=== PATIENT | female | born 1940 | race Caucasian/White ===

== ENCOUNTER 2018-04-19 21:03 | Observation (INO) ==
--- NOTE | 2018-04-19 21:20 | Emergency Department Note ---
Disposition Clinical Impression: Right sided sciatica UTI (urinary tract infection) Qualifiers: Urinary tract infection type: site unspecified Hematuria presence: without hematuria Qualified Code(s): N39.0 - Urinary tract infection, site not specified Disposition: Admitted As Inpatient Condition: Fair Time of Disposition: 00:41 General Adult HPI - General Chief complaint: ED Extremity Injury, Lower Stated complaint: Leg Pain/Cant Walk Time Seen by Provider: 04/19/18 21:16 Source: patient, family Limitations: no limitations Nursing Notes Reviewed: Yes Vital Signs Reviewed: Yes - History of Present Illness HPI Narrative: Patient presents to the ED the chief complaint of right-sided neck pain and leg pain. Patient has a history of bilateral sciatica and has had multiple back surgeries and has seen pain management previously. She denies any associated injury, but states that she has had significantly increasing right-sided back pain for 2 weeks. States the pain starts in her buttock and radiates all the way down her leg. It got to the point tonight where she is unable to walk even when using her walker. She denies any fever, chills, chest pain or shortness of breath. No abdominal pain, nausea or vomiting. Does state she had some dysuria. Denies any numbness or weakness, but is complaining of pain Pain Scale: 6 - Related Data Allergies Allergy/AdvReac Type Severity Reaction Status Date / Time Penicillins Allergy See Verified 04/19/18 21:51 Comments Review of Systems: As reviewed in the HPI. All other systems reviewed are negative or normal. Past Medical History - Past Medical History Attestation: Yes The following information was validated with the patient. Source: patient Medical history: Reports: CHF, diabetes, hypertension Psychiatric history: Reports: depression - Social History Smoking Status: Never smoker Alcohol use: Reports: occasionally Drug use: Reports: none Physical Exam CONSTITUTIONAL: [Appears uncomfortable but is in no acute distress] SKIN: [Warm, dry, and intact without rash] EYES: [extraocular movements are grossly intact, clear conjunctiva] HENT: [Normocephalic, atraumatic, moist mucus membranes] NECK: [no obvious swelling, normal range of motion] PULMONARY: [normal chest rise and fall, no respiratory distress or stridor CARDIOVASCULAR: [regular rate, distal extremities are warm and well perfused] GASTROINSTESTINAL: [nondistended, non-tender] GENITOURINARY: [deferred] NEUROLOGIC: [normal speech, moves all extremities, normal sensation and strength. Does have significant pain with hip flexion on the right. Mild decrease in plantar flexion and extensor hallucis, longus on the right compared to the left, but is secondary to pain] MUSCULOSKELETAL: [no gross deformities, atraumatic, right piriformis tenderness in right PSIS pain, no right flank pain] PSYCHIATRIC: [normal mood and affect] - General General appearance: alert Course Course Narrative: Patient presenting with right-sided back pain and sciatica. History of similar in the past, but is more important than usual. We will get labs and a CT and pain medication. CT did not show any acute abnormality. Patient feeling slightly better after medication, but still is unable to ambulate on her own, even with assistance and walker. She also has urinary tract infection. We will give her dose of Rocephin and admitted to the hospital service. Vital Signs Temperature 99.8 F H 04/19/18 21:10 Pulse Rate 83 04/19/18 21:10 Respiratory Rate 18 04/19/18 21:10 Blood Pressure 150/72 04/19/18 21:10 O2 Sat by Pulse Oximetry 94 04/19/18 21:10 Temperature 99.8 F H 04/19/18 21:10 Pulse Rate 76 04/19/18 23:14 Respiratory Rate 18 04/19/18 23:14 Blood Pressure 160/72 04/19/18 23:14 O2 Sat by Pulse Oximetry 93 04/19/18 23:14 Oxygen Delivery Oxygen Delivery Room Air Medical Decision Making - Lab Data Result diagrams: 04/19/18 21:33 04/19/18 21:33 Lab Results 04/19/18 04/19/18 04/19/18 Range/Units 21:33 21:33 21:49 WBC 10.2 (4.3-11.1) K/mcL RBC 4.78 (3.82-4.97) M/mcL Hgb 13.6 (11.5-15.4) g/dL Hct 42.2 (35.3-44.9) % MCV 88.3 (83.0-100.0) fL MCH 28.5 (28.0-33.3) pg MCHC 32.2 (31.6-35.5) g/dL RDW 14.8 H (11.5-14.5) % Plt Count 253 (140-400) K/mcL MPV 9.9 (9.4-12.4) fL Immature Gran % 0.6 (0-4) % Seg Neutrophils % 70.4 % Lymphocytes % 17.9 % Monocytes % 7.2 % Eosinophils % 3.6 % Basophils % 0.3 % Neutrophils # 7.2 (1.6-8.9) K/mcL Lymphocytes # 1.8 (0.6-4.6) K/mcL Monocytes # 0.7 (0.0-1.3) K/mcL Eosinophils # 0.4 (0.0-0.6) K/mcL Basophils # 0.0 (0.0-0.2) K/mcL Sodium 139 (136-145) mEq/L Potassium 3.0 L (3.5-5.1) mEq/L Chloride 101 (98-107) mEq/L Carbon Dioxide 29 (23-29) mEq/L BUN 17 (8-23) mg/dL Creatinine 0.71 (0.60-1.20) mg/dL Est GFR ( Amer) > 60 (> 60) Est GFR (Non-Af Amer) > 60 (> 60) BUN/Creatinine Ratio 24 (6-26) Glucose 148 H (70-105) mg/dL Calculated Osmolality 292 (280-300) Calcium 9.7 (8.6-10.3) mg/dL Urine Color Yellow (Yellow) Urine Clarity Clear (Clear) Urine pH 6.0 (5.0-8.0) pH Units Ur Specific [place] 1.011 (1.010-1.025) Urine Protein Negative (Neg-Trace) mg/dL Urine Glucose (UA) Normal (Normal) mg/dL Urine Ketones Negative (Negative) mg/dL Urine Blood Negative (Negative) Urine Nitrite Positive A (Negative) Urine Bilirubin Negative (Negative) Urine Urobilinogen Normal (Normal) mg/dL Ur Leukocyte Esterase Large H (Negative) Urine Microscopic RBC 0-3 (0-3) per hpf Urine Microscopic WBC 50-100 H (0-3) per hpf Ur Squamous Epith Cells Moderate H (None-Few) per lpf Urine Bacteria Many H (None-Few) per hpf Hyaline Casts None Seen (None-Few) per lpf Ur Culture Indicated? YES A (NO)
[2018-04-19] MEDS ORDERED: Orphenadrine 60 MG/2 ML VIAL IV ONE (21:33)
[2018-04-19] MEDS ORDERED: *HR* Morphine 2 MG/ML SYRINGE IM ONE (21:33)
[2018-04-19 21:59] LABS: Bilirubin,Urine Negative (Negative); Blood,Urine Negative (Negative); Clarity,Urine Clear (Clear); Color,Urine Yellow (Yellow); Glucose,Urine (UA) Normal (Normal); Ketones,Urine Negative (Negative); Leukocyte Esterase,Urine Large (Negative); Nitrite,Urine Positive (Negative); Protein,Urine Negative (Neg-Trace); Specific Gravity,Urine 1.011 (1.010-1.025); Urobilinogen,Urine Normal (Normal)
[2018-04-19 22:00] LABS: Bacteria,Urine Many per hpf (None-Few); Hyaline Casts,Urine None Seen per lpf (None-Few); RBC,Urine 0-3 per hpf (0-3); Squamous Epithelial Cell,Urine Moderate per lpf (None-Few); WBC,Urine 50-100 per hpf (0-3)
[2018-04-19 22:06] LABS: Basophils % 0.3 %; Eosinophils # 0.4 K/mcL (0.0-0.6); Eosinophils % 3.6 %; Hematocrit 42.2 % (35.3-44.9); Hemoglobin 13.6 g/dL (11.5-15.4); Immature Granulocytes % 0.6 % (0-4); Lymphocytes # 1.8 K/mcL (0.6-4.6); Lymphocytes % 17.9 %; Mean Corpuscular HGB Conc 32.2 g/dL (31.6-35.5); Mean Corpuscular Hemoglobin 28.5 pg (28.0-33.3); Mean Corpuscular Volume 88.3 fL (83.0-100.0); Mean Platelet Volume 9.9 fL (9.4-12.4); Monocytes # 0.7 K/mcL (0.0-1.3); Monocytes % 7.2 %; Neutrophils # 7.2 K/mcL (1.6-8.9); Platelet Count 253 K/mcL (140-400); Red Blood Count 4.78 M/mcL (3.82-4.97); Red Cell Distribution Width 14.8 % (11.5-14.5); Segmented Neutrophils % 70.4 %
[2018-04-19 22:25] LABS: BUN/Creatinine Ratio 24 (6-26); Blood Urea Nitrogen 17 mg/dL (8-23); Calcium 9.7 mg/dL (8.6-10.3); Carbon Dioxide 29 mEq/L (23-29); Chloride 101 mEq/L (98-107); Glucose 148 mg/dL (70-105); Osmolality,Calculated 292 (280-300); Sodium 139 mEq/L (136-145); eGFR For Non-African Americans > 60 (> 60)
--- NOTE | 2018-04-19 23:50 | Emergency Department Note ---
Disposition Clinical Impression: UTI (urinary tract infection), Right sided sciatica Disposition: Admitted As Inpatient Condition: Fair General Adult HPI - General Chief complaint: ED Extremity Injury, Lower Stated complaint: Leg Pain/Cant Walk Time Seen by Provider: 04/19/18 21:16 - History of Present Illness Pain Scale: 6 - Related Data Allergies Allergy/AdvReac Type Severity Reaction Status Date / Time Penicillins Allergy See Verified 04/19/18 21:51 Comments Past Medical History - Past Medical History Medical history: Reports: CHF, diabetes, hypertension Psychiatric history: Reports: depression - Social History Smoking Status: Never smoker Alcohol use: Reports: occasionally Drug use: Reports: none Physical Exam - General General appearance: alert Course Vital Signs Temperature 99.8 F H 04/19/18 21:10 Pulse Rate 83 04/19/18 21:10 Respiratory Rate 18 04/19/18 21:10 Blood Pressure 150/72 04/19/18 21:10 O2 Sat by Pulse Oximetry 94 04/19/18 21:10 Temperature 99.8 F H 04/19/18 21:10 Pulse Rate 76 04/19/18 23:14 Respiratory Rate 18 04/19/18 23:14 Blood Pressure 160/72 04/19/18 23:14 O2 Sat by Pulse Oximetry 93 04/19/18 23:14 Oxygen Delivery Oxygen Delivery Room Air Medical Decision Making - Lab Data Result diagrams: 04/19/18 21:33 04/19/18 21:33 Lab Results 04/19/18 04/19/18 04/19/18 Range/Units 21:33 21:33 21:49 WBC 10.2 (4.3-11.1) K/mcL RBC 4.78 (3.82-4.97) M/mcL Hgb 13.6 (11.5-15.4) g/dL Hct 42.2 (35.3-44.9) % MCV 88.3 (83.0-100.0) fL MCH 28.5 (28.0-33.3) pg MCHC 32.2 (31.6-35.5) g/dL RDW 14.8 H (11.5-14.5) % Plt Count 253 (140-400) K/mcL MPV 9.9 (9.4-12.4) fL Immature Gran % 0.6 (0-4) % Seg Neutrophils % 70.4 % Lymphocytes % 17.9 % Monocytes % 7.2 % Eosinophils % 3.6 % Basophils % 0.3 % Neutrophils # 7.2 (1.6-8.9) K/mcL Lymphocytes # 1.8 (0.6-4.6) K/mcL Monocytes # 0.7 (0.0-1.3) K/mcL Eosinophils # 0.4 (0.0-0.6) K/mcL Basophils # 0.0 (0.0-0.2) K/mcL Sodium 139 (136-145) mEq/L Potassium 3.0 L (3.5-5.1) mEq/L Chloride 101 (98-107) mEq/L Carbon Dioxide 29 (23-29) mEq/L BUN 17 (8-23) mg/dL Creatinine 0.71 (0.60-1.20) mg/dL Est GFR ( Amer) > 60 (> 60) Est GFR (Non-Af Amer) > 60 (> 60) BUN/Creatinine Ratio 24 (6-26) Glucose 148 H (70-105) mg/dL Calculated Osmolality 292 (280-300) Calcium 9.7 (8.6-10.3) mg/dL Urine Color Yellow (Yellow) Urine Clarity Clear (Clear) Urine pH 6.0 (5.0-8.0) pH Units Ur Specific [place] 1.011 (1.010-1.025) Urine Protein Negative (Neg-Trace) mg/dL Urine Glucose (UA) Normal (Normal) mg/dL Urine Ketones Negative (Negative) mg/dL Urine Blood Negative (Negative) Urine Nitrite Positive A (Negative) Urine Bilirubin Negative (Negative) Urine Urobilinogen Normal (Normal) mg/dL Ur Leukocyte Esterase Large H (Negative) Urine Microscopic RBC 0-3 (0-3) per hpf Urine Microscopic WBC 50-100 H (0-3) per hpf Ur Squamous Epith Cells Moderate H (None-Few) per lpf Urine Bacteria Many H (None-Few) per hpf Hyaline Casts None Seen (None-Few) per lpf Ur Culture Indicated? YES A (NO) Attestation Statement - Attestation Attestation: I examined this patient and my medical decision-making was reviewed with the Resident Physician. I agree with the documented findings, disposition and treatment plan as described except to the extent set forth below. Patient presents to the ED as she complaint of right leg pain. Patient has pain rating on the back of her right leg. Patient has a history of low back problems including effusion. No numbness. She is having trouble ambulating because she is in pain. On examination she is laying in bed in no acute distress. Awake alert and oriented. Positive straight leg raise. Downgoing Babinski. Symmetric reflexes. Plan. Patient had CT L-spine that does not show any acute changes. She does have a UTI which we will treat. We will ambulate. Likely discharge if able to ambulate. Imaging performed. Patient is unable to ambulate. She has a UTI. Admitted. Lumbar Spine CT 04/19/18 21:34 IMPRESSION: 1. Diffuse osteopenia. Age-indeterminate but possibly chronic fracture of the inferior endplate of L1 vertebral body without significant loss of vertebral body height. 2. Postsurgical changes from prior decompression and fusion at L5-S1. Stable grade 1 anterolisthesis of L5. Stable multilevel spondylosis as above. Degenerative disc findings are worse at L5-S1. Most severe neural foraminal stenosis appears to be at L1-L2 on the left. D/ / Deny Espinoza MD / Deny Espinzoa MD Interpreting Provider: Deny Espinoza MD
[2018-04-20] MEDS ORDERED: cefTRIAXone 1,000 MG in Water for inj. (sterile) 20 ML 10 ML IVP ONE (00:16)
[2018-04-20] MEDS ORDERED: Naloxone 0.4 MG/ML INJ IVP PRN (04:38)
[2018-04-20] MEDS ORDERED: *HR* Dextrose 50 % in Water (Syg) 50 ML SYRINGE IVP PRN (04:41)
[2018-04-20] MEDS ORDERED: Dextrose Gel 15 GM/37.5 ML TUBE PO PRN ×2 (04:41)
[2018-04-20] MEDS ORDERED: D5% in Water 1,000 ML IVC PRN (04:41)
[2018-04-20 06:56] LABS: Hematocrit 38.5 % (35.3-44.9); Hemoglobin 12.5 g/dL (11.5-15.4); Mean Corpuscular HGB Conc 32.5 g/dL (31.6-35.5); Mean Corpuscular Hemoglobin 28.6 pg (28.0-33.3); Mean Corpuscular Volume 88.1 fL (83.0-100.0); Platelet Count 236 K/mcL (140-400); Red Blood Count 4.37 M/mcL (3.82-4.97); Red Cell Distribution Width 14.6 % (11.5-14.5)
[2018-04-20 07:15] LABS: BUN/Creatinine Ratio 24 (6-26); Blood Urea Nitrogen 13 mg/dL (8-23); Calcium 9.3 mg/dL (8.6-10.3); Carbon Dioxide 30 mEq/L (23-29); Chloride 102 mEq/L (98-107); Glucose 155 mg/dL (70-105); Magnesium 1.4 mg/dL (1.6-2.6); Osmolality,Calculated 295 (280-300); Potassium 3.3 mEq/L (3.5-5.1); Sodium 141 mEq/L (136-145); eGFR For Non-African Americans > 60 (> 60)
--- NOTE | 2018-04-20 07:18 | Internal Med History&Physical ---
Date of Encounter: 04/20/18 Time of Encounter: 03:30 Internal Medicine - H&P: HPI Chief complaint: Urinary tract infection Admitted From: Home Plans for Post Hospital Care: Home History of present illness: Ms. Palomino is a 77 year old female Patient presented for pain in her right leg that started 2 weeks ago. She states that she has not been able to walk on it. She was talking with her daughter who is in the medical field and she advised her to get it looked at in the ER. Patient denies falls, injuries, nothing that she can think of caused this. At base line, she walks with a walker. She describes the pain as 'hurting pain,' and it is felt mainly when she is walking. It is focused on the lateral aspect of her leg, and travels down her leg. She states that she has a history of siatica, but this pain has been different. She previously was treated at a pain management clinic, but has not been there since 2016. She has tried tylenol at home but it does not work. In the ER, UA was positive for nitrites and large leukocyte esterase and many bacteria. A lumbar CT showed diffuse osteopenia and post-surgical changes. She had a potassium of 3.0. She was admitted for further management of her UTI and leg pain. Upon my assessment patient is resting comfortably in bed. She denies chest pain , nausea, vomiting, abdominal pain and diarrhea. She also denies dysuria. She lives with her and multiple other family members. Past Med Surg Social Fam HX - Past Medical History Medical history: CHF, diabetes, hypertension Psychiatric history: depression - Past Surgical History Additional surgical history: Bilateral knee replacements, lower back fusion, cateracts - Social History Smoking Status: Never smoker Alcohol use: occasionally Drug use: none Internal Medicine - H&P: Meds Amlodipine Besylate 10 mg PO DAILY 04/20/18 [History] Furosemide [Lasix] 40 mg PO DAILY 04/20/18 [History] Potassium Chloride [Klor-Con Sprinkle] 10 meq PO DAILY 04/20/18 [History] Pravastatin Sodium 20 mg PO DAILY 04/20/18 [History] Zoloft 50 mg PO DAILY 04/20/18 [History] hydrALAZINE [HydrALAZINE] 25 mg PO Q8HR 04/20/18 [History] metFORMIN 1,000 mg PO BID 04/20/18 [History] 3 Allergy/AdvReac Type Severity Reaction Status Date / Time Penicillins Allergy See Verified 04/19/18 21:51 Comments All Systems PM: A 10-system review of systems was performed and is negative for pertinent findings except as documented above in the HPI. - Constitutional Vitals: Temp Pulse Resp BP Pulse Ox 98.2 F 70 16 146/72 90 04/20/18 03:52 04/20/18 03:52 04/20/18 03:52 04/20/18 03:52 04/20/18 03:52 General appearance: Present: cooperative, A&O X 3, pleasant, no acute distress, answers questions appropriately - Head Head exam: Present: normal inspection - Eye Eye exam: Present: EOMI, normal appearance - Respiratory Respiratory exam: Present: CTAB. Absent: chest wall tenderness, respiratory distress, wheezes - Cardiovascular Cardiovascular exam: Present: RRR. Absent: diastolic murmur, systolic murmur - GI/Abdominal GI/Abdominal exam: Present: normal bowel sounds, soft. Absent: guarding, tenderness - Extremities Exam Extremities exam: Present: warm, radial pulses palpable and symmetrical. Absent : calf tenderness, pedal edema, tenderness - Neurological Exam Neurological exam: Present: no focal deficits, strengths equal and symetr throughout. Absent: motor sensory deficit, facial droop, speech deficit - Skin Skin exam: Present: dry, normal color, warm Internal Med - H&P Results - Labs CBC & Chem 7: 04/20/18 06:31 04/19/18 21:33 Labs: Short CBC 04/20/18 Range/Units 06:31 WBC 8.9 (4.3-11.1) K/mcL Hgb 12.5 (11.5-15.4) g/dL Hct 38.5 (35.3-44.9) % Plt Count 236 (140-400) K/mcL - Assessment and plan (1) UTI (urinary tract infection) Current Visit: Yes Status: Acute Assessment and plan: UA positive for nitrites, large LE and many bacteria. Started on ceftriaxone in the ER. Unclear if this is contributing to her right sided leg and hip pain. Continue antibiotics Follow up culture results. Qualifiers: Urinary tract infection type: site unspecified Hematuria presence: without hematuria Qualified Code(s): N39.0 - Urinary tract infection, site not specified (2) Right sided sciatica Current Visit: Yes Status: Acute Assessment and plan: Patient has a history of sciatica, but recently not requiring pain medication. PT/OT evaluation Pain medication as needed Consider focused imaging on hip if injury is suspected. Lumbar spine showed osteopenia with chronic fracture of L1. (3) Diabetes Current Visit: Yes Status: Acute Assessment and plan: Monitor sugars ACHS, Low dose sliding scale with meals and at night. 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 Potassium supplementation given. Repeat labs in the morning Check magnesium. Replete if indicated. - Time Spent With Patient Total time spent is greater than 50% in coordination of care (as documented) at patient's floor/unit and/or counseling patient: Greater than 35 minutes
[2018-04-20] MEDS: Insulin LISPRO 300 UNITS/3 ML VIAL SQ SCH ×3 (09:31→16:21)
[2018-04-20] MEDS: amLODIPine 5 MG TABLET PO SCH (09:35)
[2018-04-20] MEDS: Furosemide 40 MG TABLET PO SCH (09:36)
[2018-04-20] MEDS: hydrALAZINE 25 MG TABLET PO SCH ×3 (09:36→23:22)
[2018-04-20] MEDS ORDERED: *HR* Metformin 500 MG TABLET PO ONE (09:56)
[2018-04-20] MEDS: traMADol 50 MG TABLET PO SCH ×3 (10:28→21:10)
[2018-04-20] MEDS: Gabapentin 300 MG CAPSULE PO SCH ×3 (10:29→21:10)
--- NOTE | 2018-04-20 18:06 | Discharge Summary ---
Date of Encounter: 04/21/18 Time of Encounter: 12:30 - Discharge Diagnosis (1) Right sided sciatica Priority: Primary Status: Acute (2) Type 2 diabetes mellitus Priority: Secondary Status: Chronic Qualifiers: Diabetes mellitus claims examiner insulin use: without claims examiner use Diabetes mellitus complication status: without complication Qualified Code(s): E11.9 - Type 2 diabetes mellitus without complications (3) HTN (hypertension) Priority: Secondary Status: Chronic Qualifiers: Hypertension type: essential hypertension Qualified Code(s): I10 - Essential (primary) hypertension (4) HLD (hyperlipidemia) Priority: Secondary Status: Chronic Qualifiers: Hyperlipidemia type: unspecified Qualified Code(s): E78.5 - Hyperlipidemia , unspecified (5) Hypokalemia Priority: Secondary Status: Acute (6) Hypomagnesemia Priority: Secondary Status: Acute Hospital course: Ms. Palomino is a 77 year old female. We admitted this patient with low back pain radiating to his right leg. She had low back surgery several years ago. CT of her lumbar spine was obtained in the emergency department. It showed diffuse osteopenia. It showed postsurgical changes from prior decompression and fusion at L5-S1. It showed degenerative for disc disease; worse at the L5-S1. It showed multiple neuronal foraminal stenosis, the worst appeared to be at L1-L2 on the left side. We suspected this patient to have sciatica. We put her on Neurontin and tramadol. I decided not to treat her for urinary tract infection, as she did not have any urinary symptoms. She did not have any fever or chills. She got significantly better by the time of discharge. CONDITION AT DISCHARGE: The patient is able to get up and ambulate on her own. She has only mild pain at sitting or in bed; gets worse (moderate) at standing and walking. She has normal urination. Skin: Free of rash and discoloration. Respiratory: Normal breath sounds with no crackles and wheezes bilaterally. CV: Heart is regular with no gallop or murmur. GI: Abdomen is flat and soft with no palpable mass or visceromegaly. Neuro exam: There is no focal deficits. Normal speech, swallowing and gait. SEE DISCHARGE ORDERS/MEDICATIONS.. She is to meet her PCP soon. She will get a referral to a pain block specialist. Discharge discussed with: patient, family, nurse - Time Spent with Patient Total time spent providing and/or coordinating discharge services: Greater than 30 minutes (40 minutes) - Discharge Medications Prescriptions: Gabapentin [Neurontin] 600 mg PO TID 30 Days #90 capsule Tramadol HCl [Tramadol HCl ER] 100 mg PO QAM 30 Days #30 tab.er.24h Home Medications: Amlodipine Besylate 10 mg PO DAILY 04/20/18 [History] Cholecalciferol (D-3) [Vitamin D] 1,000 unit PO DAILY 04/20/18 [History] Furosemide [Lasix] 40 mg PO DAILY 04/20/18 [History] Gabapentin [Neurontin] 600 mg PO TID 30 Days #90 capsule 04/20/18 [Rx] Metformin HCl [Glucophage] 1,000 mg PO BID 04/20/18 [History] Potassium Chloride [Klor-Con Sprinkle] 10 meq PO DAILY 04/20/18 [History] Pravastatin Sodium [Pravachol] 20 mg PO HS 04/20/18 [History] Sertraline [Zoloft] 50 mg PO DAILY 04/20/18 [History] Tramadol HCl [Tramadol HCl ER] 100 mg PO QAM 30 Days #30 tab.er.24h 04/20/18 [Rx ] hydrALAZINE [HydrALAZINE] 25 mg PO Q8HR 04/20/18 [History] Allergies/Adverse Reactions: 3 Allergy/AdvReac Type Severity Reaction Status Date / Time Penicillins Allergy See Verified 04/20/18 14:03 Comments Date of admission: 04/20/18 00:39 Primary care physician: Leela Chatman MD Consults: 04/20/18 04:42 Consult to Physical Therapy [CONS] Routine Comment: Evaluate, develop and implement POC Reason for Consult: Patient having difficulty walking for the past few weeks. States that she has had sciatica pain though it is worse the past few weeks. Does patient have active BEDREST order?: No Is patient medically & hemodynamically stable?: Yes OT [Consult to Occupational Therapy] [CONS] Routine Comment: Evaluate, develop and implement POC Reason for Consult: Patient has hip pain, difficulty walking. States that she has siatica pain, but worse the last few weeks. Does patient have active BEDREST order?: No Is patient medically & hemodynamically stable?: Yes Discharging clinician: Alejandro Brooks Anticipated date of discharge: 04/21/18 - Constitutional General appearance: Present: A&O X 3, no acute distress, answers questions appropriately Exam: xxx - Constitutional Vitals: Temp Pulse Resp BP Pulse Ox 97.8 F 76 16 125/71 92 04/20/18 16:24 04/20/18 16:24 04/20/18 16:24 04/20/18 16:24 04/20/18 16:24 General appearance: Present: cooperative, A&O X 3, pleasant, no acute distress, answers questions appropriately - Patient Status Disposition: Home, Self-Care Condition: Fair Functional capacity at discharge: uses cane/walker Overall status at discharge: patient is progressing back to baseline - Discharge Instructions Follow Up With: Leela Chatman MD [Primary Care Provider] - Additional Instructions: THE PATIENT IS TO SEE HER PCP - IN THE NEXT A FEW DAYS; SHE WILL GET A REFERRAL TO A [facility]. SHE DECIDED NOT TO GO TO [facility] TO GET PHYSICAL THERAPY. - Diet and Activity Activity: ambulate only with your walker (IF NEEDED..), increase activity as tolerated Diet: diabetic diet - VTE Reasons for not Prescribing Prophylaxis: Treatment not Indicated - Low risk for VTE Deep Vein Thrombosis/Pulmonary Embolism Present on Admission: No
[2018-04-20] MEDS ORDERED: Insulin LISPRO 300 UNITS/3 ML VIAL SQ SCH (21:00)
[2018-04-20] MEDS: cefTRIAXone 1,000 MG in Water for inj. (sterile) 20 ML 10 ML IVP SCH ×2 (21:10→23:00)
--- NOTE | 2018-04-20 23:11 | Event Note ---
Date of Encounter: 04/20/18 Time of Encounter: 23:08 Alerted by pts. nurse CANDICE Byrnes that patient's IV site had gone bad and the patient was refusing to have another IV placed due to being told she would be discharged today. Patient receiving IV Rocephin for UTI. Pt. was educated on the risks of not continuing IV abx by her nurse, but pt. still refused to have new IV access started. Discharge abx to be handled in a.m. by discharging Hospitalist.
[2018-04-21] MEDS: Furosemide 40 MG TABLET PO SCH (08:02)
[2018-04-21] MEDS: Gabapentin 300 MG CAPSULE PO SCH (08:02)
[2018-04-21] MEDS: amLODIPine 5 MG TABLET PO SCH (08:02)
[2018-04-21] MEDS: hydrALAZINE 25 MG TABLET PO SCH (08:03)
[2018-04-21] MEDS: traMADol 50 MG TABLET PO SCH (08:03)
[2018-04-21] MEDS: Insulin LISPRO 300 UNITS/3 ML VIAL SQ SCH ×2 (08:04→12:51)
[2018-04-21 12:26] VITALS: BP 114/66
== END 2018-04-21 14:37 | disposition home or self-care (01) ==
LOC: 3NENU 21:03 → EMEROOARM 21:03 → SUATTDRO 04-20 00:39 → 3NENU 04-20 01:12
PROVIDERS: ADMIT Internal Medicine; ATTEND Internal Medicine

== ENCOUNTER 2019-02-03 07:36 | Inpatient (IN) ==
[2019-02-03] MEDS ORDERED: Famotidine 20 MG/2 ML VIAL IVP ONE (07:55)
[2019-02-03] MEDS ORDERED: Celecoxib 200 MG CAPSULE PO ONE (07:56)
[2019-02-03] MEDS ORDERED: Pregabalin 75 MG CAPSULE PO ONE (07:56)
[2019-02-03] MEDS ORDERED: Acetaminophen IV 1,000 MG/100 ML INFUS..BTL IVPB ONE (07:56)
[2019-02-03] MEDS ORDERED: Ringers Solution, Lactated 1,000 ML IVC SCH ×2 (08:00→11:16)
[2019-02-03] MEDS ORDERED: Clindamycin 900 MG/50 ML 900 MG/50 ML IV.SOLN IVPB ONE (08:09)
[2019-02-03] MEDS ORDERED: *HR* FentaNYL (PF) 100 MCG/2 ML VIAL ONE (08:11)
[2019-02-03] MEDS ORDERED: Lidocaine -MPF 2% 2 ML VIAL ONE (08:11)
[2019-02-03] MEDS ORDERED: Ondansetron 4 MG/2 ML VIAL ONE (08:11)
[2019-02-03] MEDS ORDERED: *HR* Propofol 200 MG/20 ML VIAL IVP ONE (08:11)
[2019-02-03] MEDS ORDERED: Dexamethasone 4 MG/ML VIAL ONE ×2 (08:11→08:33)
[2019-02-03] MEDS ORDERED: *HR* Succinylcholine 200 MG/10 ML VIAL IVP ONE (08:11)
--- NOTE | 2019-02-03 08:16 | History & Physical Report ---
Date of Encounter: 02/03/19 Time of Encounter: 08:15 24 Hour HP Update - Instructions Instructions: If the History and Physical is less than 30 days old and was completed prior to A.M. admission and or procedure and has NOT been updated on calendar day of procedure please complete this update prior to performing procedure. - Update Patient reports changes in Medical Condition: No Changes in examination, assessment, or condition: No Changes in Medication: No Preop tests/diagnostics Reviewed: Yes Surgery Remains Indicated: Yes Consent for Planned Operative Procedure(s) Verified: Yes - Pre-Operative Checklist Preoperative Checklist Indicated: No Prophylactic Antibiotic Ordered: Yes Is VTE Prophylaxis Indicated?: Yes
[2019-02-03] MEDS ORDERED: ROPIVACAINE HCL/PF 0.5% 30 ML VIAL ONE (08:26)
[2019-02-03] MEDS ORDERED: ROPIVACAINE/PF/NS SYRINGE INTRAART ONE (08:26)
[2019-02-03] MEDS ORDERED: Ethanol\\Acetic Acid\\Na Ace\\Ben 1,000 ML IRRIG.SOLN IR ONE (08:42)
--- NOTE | 2019-02-03 08:52 | Anesthesia Evaluation PreOp ---
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 Other Medical History: Diabetes Type II, GERD, Other ([place]) Anesthesia History: No Prior Anesthetic Complications : No Alcohol Use: occasionally Drug use: none Medications and Allergies Metformin HCl [Glucophage] 1,000 mg PO BID 04/20/18 [History] Pravastatin Sodium [Pravachol] 20 mg PO HS 04/20/18 [History] Sertraline [Zoloft] 50 mg PO DAILY 04/20/18 [History] Amlodipine Besylate 10 mg PO QAM 02/03/19 [History] Aspirin 325 mg PO DAILY 02/03/19 [History] Cholecalciferol (Vitamin D3) [Dialyvite Vitamin D] 5,000 units PO DAILY 02/03/19 [History] Magnesium 250 mg PO QPM 02/03/19 [History] Potassium Chloride [Klor-Con 10] 10 meq PO QPM 02/03/19 [History] Spironolactone 25 mg PO QAM 02/03/19 [History] Tizanidine HCl 4 mg PO TID PRN 02/03/19 [History] Allergy/AdvReac Type Severity Reaction Status Date / Time Penicillins Allergy See Verified 02/03/19 08:08 Comments - Meds/Allergy Pre-op Review Medications Reviewed: Yes Allergies Reviewed: Yes Beta Blockers on Current Med List: No Anesthesia Results - Labs Laboratory Tests 01/22/19 01/22/19 01/22/19 12:20 12:20 12:20 Hgb 13.0 Hct 41.4 Plt Count 315 PT 10.9 INR 1.0 APTT 34.4 Sodium 138 Potassium 4.8 BUN 20 Creatinine 0.82 - Imaging EKG: report reviewed (SR First Degree AV Block) Anesthesia Exam O2 Sat Height 1.6 m Weight 112.037 kg O2 Sat by Pulse Oximetry 96 Vital Signs Temp Pulse Resp BP Pulse Ox 98.0 F 88 18 136/51 96 02/03/19 08:03 02/03/19 08:03 02/03/19 08:03 02/03/19 08:03 02/03/19 08:03 Height: 5'3 Weight: 247 lbs NPO (# of Hours): MN Pain Scale: 0 - HEENT Pupil (Motor): Pupils equal, EOMI Mallampati: III Teeth: Normal Oral Opening: Less than or equal to 3 - AIRCRAFT ENGINE DISMANTLER LOC: Oriented AIRCRAFT ENGINE DISMANTLER Motor: Normal RUE, Normal LUE, Normal RLE, Normal LLE, Normal Face AIRCRAFT ENGINE DISMANTLER Sensory: Normal: RUE, LUE, RLE, LLE, Face - Cardiac Rhythm: Regular Murmur: None JVD: No Carotid Bruit: No - Pulmonary Breath Sounds: bilateral Clear Respiratory Effort: Symmetrical Anesthesia Assess/Plan ASA Score: 3 (HTN MO IVON) Level of consciousness: Cooperative, Oriented Anesthetic Plan: General, Regional Nerve Block Regional Nerve Block Plan: Supracervical Plexus Autologous Blood: No Monitoring Plan: Standard Monitors Recovery Plan: PACU (Discussed GA and RA, agrees to proceed)
[2019-02-03] MEDS ORDERED: Tranexamic Acid 1,000 MG/10 ML VIAL ONE (09:36)
--- NOTE | 2019-02-03 10:16 | Orthopedic Operative Note ---
Date of procedure: 02/03/19 Pre-op diagnosis: Right shoulder cuff tear arthropathy Post-op diagnosis: same Procedure: Procedure: Total Shoulder Replacment Reverse, right Estimated blood loss: 50 cc Hardware: Metal and polyethylene replacement: Arthrex 24, +2 , 25 mm screw glenoid baseplate, 4 locking 5.5 screw, 39+4 glenosphere, 13 apex humeral stem, poly insert 6 Exam Under anesthesia: Full motion no instability Procedural Notes: Irreparable tear supraspinatus tendon, grade 4 arthritic changes humeral head glenoid socket. Operative procedure: The patient was brought to the operating room and placed on the operating room table. After general anesthesia was administered the operative shoulder was examined. Findings were noted. The patient was placed in the modified beachchair position. All pressure points were padded appropriately. And the head was stabilized in the neutral position. The operative extremity was prepped and draped in the sterile surgical fashion. The patient received IV antibiotics prior to skin incision. A standard deltopectoral approach was made to the operative shoulder. Incision was made to the skin and subcutaneous tissue,hemo stasis was obtained with Bovie cautery. Using careful blunt dissection the cephalic vein was identified and mobilized medially. The deltopectoral interval was developed and the clavipectoral fascia was incised. The subscap was released off the lesser tuberosity and tagged with #2 FiberWire suture subscap was irreparable.. The humerus was dislocated patient noted to have irreparable tear supraspinatus tendon, and the humeral cut was made along the anatomic neck. Patient noted to have grade 4 arthritic changes humeral head glenoid socket. Anterior and posterior Bankart retractors were placed to expose the glenoid. The glenoid guide was seated and the centering hole was made. It was reamed with the appropriate reamer. The 24, +2, 25 mm screw, baseplate was seated and secured with 4 locking 5.5 screw. The baseplate was irrigated and dried and the 39+4 Glenosphere was seated and s ecured with the Holland taper. The Holland taper was tested and found to be secure, glenosphere fixation was secondarily secured with the central screw. The humerus was redislocated and prepared with the diaphyseal reamers, followed by a broaching process up to the appropriate size 13 in the patient's anatomic version. The metaphyseal reamer was then utilized. Trial reduction found the shoulder to be relocatable. Trial components were removed and 13 stem was impacted in place in the patient's anatomic version. Trial reduction found the shoulder to be relocatable and stable with the appropriate 6 Trial component was removed and the real implant was seated and secured the shoulder was reduced. The shoulder had excellent motion and excellent stability and no evidence of dislocation. The deep tissue was irrigated with pulse irrigation. The PA close the shoulder. The deltopectoral interval was closed with a running #1 PDS suture, subcutaneous tissue was irrigated and closed with 0 PDS suture, the skin was closed with Dermabond. The patient was placed in a sterile dressing, abduction brace and extubated. The patient was then transferred to the recovery room in stable condition. Anesthesia: WICHO Surgeon: Curtis Conner Was there an information technology assistant present: No Estimated blood loss (cc): 50 Condition: stable Disposition: PACU
[2019-02-03] MEDS ORDERED: *HR* OxyCODONE Immed Rel 5 MG TABLET PO PRN (10:34)
--- NOTE | 2019-02-03 11:02 | Anesthesia Evaluation Post Op ---
Date of Encounter: 02/03/19 Time of Encounter: 11:00 - Vital Signs Vital Signs: Vital Signs/O2 Sat/Glucose, Most Current Temp Pulse Resp BP Pulse Ox 02/03/19 10:49 87 20 98 02/03/19 10:39 89 22 128/67 100 02/03/19 10:29 98.2 F 83 20 166/81 97 02/03/19 09:39 98.0 F 80 18 177/95 95 02/03/19 09:23 80 177/95 95 02/03/19 09:05 85 160/85 96 02/03/19 08:03 98.0 F 88 18 136/51 96 - Lungs Lungs: Clear Ascult./Percussion - Airway Airway: Non-obstructed - Cardiovascular Regular Rate - Mental Status Mental Status: Alert & Oriented, Answers Appropriately - Pain Pain Scale: 0 - Nausea Vomiting Nausea Vomiting: Not Present - Hydration Hydration: Ice chips - Discharge PostOp Status: Transfer Patient to floor
[2019-02-03] MEDS ORDERED: Temazepam 15 MG CAPSULE PO PRN (11:16)
[2019-02-03] MEDS ORDERED: traMADol 50 MG TABLET PO PRN (11:16)
[2019-02-03] MEDS ORDERED: MOM Conc 10 ML UD.LIQ PO PRN (11:16)
[2019-02-03] MEDS ORDERED: Sennosides 8.6 MG TABLET PO PRN (11:16)
[2019-02-03] MEDS ORDERED: tiZANidine 4 MG TABLET PO PRN (11:16)
[2019-02-03] MEDS ORDERED: Aspirin 325 MG TABLET PO SCH (11:16)
[2019-02-03] MEDS ORDERED: Ondansetron 4 MG/2 ML VIAL IVP PRN (11:16)
[2019-02-03] MEDS: *HR* Metformin 500 MG TABLET PO SCH ×2 (12:24→16:53)
[2019-02-03] MEDS: Spironolactone 25 MG TABLET PO SCH (12:24)
[2019-02-03] MEDS: Cholecalciferol (D-3) 1,000 UNIT TABLET PO SCH (12:24)
[2019-02-03] MEDS: amLODIPine 5 MG TABLET PO SCH (12:24)
[2019-02-03] MEDS: *HR* OxyCODONE Immed Rel 5 MG TABLET PO PRN (15:35)
[2019-02-03] MEDS: *HR* Enoxaparin 30 MG/0.3 ML SYRINGE SQ SCH (16:52)
[2019-02-03] MEDS: Magnesium Oxide 400 MG TABLET PO SCH (16:53)
[2019-02-03] MEDS ORDERED: Dextrose Gel 15 GM/37.5 ML TUBE PO PRN ×2 (17:44)
[2019-02-03] MEDS ORDERED: *HR* Dextrose 50 % in Water (Syg) 50 ML SYRINGE IVP PRN (17:44)
[2019-02-03] MEDS ORDERED: D5% in Water 1,000 ML IVC PRN (17:44)
[2019-02-03] MEDS ORDERED: *HR* Enoxaparin 30 MG/0.3 ML SYRINGE SQ SCH (18:00)
[2019-02-03] MEDS: Insulin LISPRO 300 UNITS/3 ML VIAL SQ SCH ×2 (18:01→20:27)
--- NOTE | 2019-02-03 20:53 | Discharge Summary ---
<Marva Carlton - Last Filed: 02/03/19 20:50> Orders not resulted at time of discharge: Pending orders 02/03/19 07:57 US anesthesia pain block [US] Routine 02/03/19 10:07 Surgical Pathology [PTH] Routine 02/04/19 04:00 Basic Metabolic Panel DAILY Hemoglobin and Hematocrit [HEME] DAILY 02/05/19 04:00 Basic Metabolic Panel DAILY Hemoglobin and Hematocrit [HEME] DAILY Date of Encounter: 02/03/19 - Discharge Diagnosis (1) Status post reverse total arthroplasty of right shoulder Priority: Primary Status: Acute (2) Rotator cuff arthropathy of right shoulder Priority: Primary Status: Chronic (3) IVON on CPAP Priority: Secondary Status: Chronic (4) Obesity, morbid, BMI 40.0-49.9 Priority: Secondary Status: Chronic (5) HTN (hypertension) Priority: Secondary Status: Chronic Qualifiers: Hypertension type: unspecified Qualified Code(s): I10 - Essential (primary) hypertension (6) Type 2 diabetes mellitus Priority: Secondary Status: Chronic 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 Palomino is a 78 year old female status post right TSR reverse 02/03/19 with medical history of HTN, DMT2, IVON on CPAP, obesity. - Time Spent with Patient Total time spent providing and/or coordinating discharge services: - Discharge Medications Prescriptions: New Docusate Sodium [Colace] 100 mg PO BID 5 Days #10 capsule OxyCODONE Immed Rel [Roxicodone 5 MG] 5 mg PO Q6HR PRN 5 Days #20 tablet PRN Reason: Severe Pain Continued Metformin HCl [Glucophage] 1,000 mg PO BID Sertraline [Zoloft] 50 mg PO DAILY Pravastatin Sodium [Pravachol] 20 mg PO HS Amlodipine Besylate 10 mg PO QAM Cholecalciferol (Vitamin D3) [Dialyvite Vitamin D] 5,000 units PO DAILY Magnesium 250 mg PO QPM Spironolactone 25 mg PO QAM Tizanidine HCl 4 mg PO TID PRN PRN Reason: Muscle Spasm Aspirin 325 mg PO DAILY Discontinued Potassium Chloride [Klor-Con 10] 10 meq PO QPM Home Medications: Metformin HCl [Glucophage] 1,000 mg PO BID 04/20/18 [History] Pravastatin Sodium [Pravachol] 20 mg PO HS 04/20/18 [History] Sertraline [Zoloft] 50 mg PO DAILY 04/20/18 [History] Amlodipine Besylate 10 mg PO QAM 02/03/19 [History] Aspirin 325 mg PO DAILY 02/03/19 [History] Cholecalciferol (Vitamin D3) [Dialyvite Vitamin D] 5,000 units PO DAILY 02/03/19 [History] Docusate Sodium [Colace] 100 mg PO BID 5 Days #10 capsule 02/03/19 [Rx] Magnesium 250 mg PO QPM 02/03/19 [History] OxyCODONE Immed Rel [Roxicodone 5 MG] 5 mg PO Q6HR PRN 5 Days #20 tablet 02/03/19 [Rx] Spironolactone 25 mg PO QAM 02/03/19 [History] Tizanidine HCl 4 mg PO TID PRN 02/03/19 [History] Allergies/Adverse Reactions: Allergy/AdvReac Type Severity Reaction Status Date / Time Penicillins Allergy See Verified 02/03/19 08:08 Comments Date of admission: 02/03/19 11:16 Primary care physician: Leela Chatman MD Consults: 02/03/19 11:16 Consult to Occupational Therapy [CONS] Routine Comment: post shoulder surgery Reason for Consult: post shoulder surgery Does patient have active BEDREST order?: No Is patient medically & hemodynamically stable?: Yes Consult to Physical Therapy [CONS] Routine Comment: post shoulder surgery Reason for Consult: post shoulder surgery Does patient have active BEDREST order?: No Is patient medically & hemodynamically stable?: Yes Consult to Applications Trainer [CONS] Routine Reason for SW Consult: shoulder surgery RT Post Op Consult [CONS] Routine Labs on day of discharge: Labs from last 24 hours 02/03/19 02/03/19 11:49 08:01 POC Glucose 230 H 129 H - Impressions ITS Impressions Shoulder X-Ray 02/03/19 01:00 IMPRESSION: Anatomic alignment status post reverse type right shoulder arthroplasty. No evidence of hardware complication. D/ / Augie Austin MD / Augie Austin MD Interpreting Provider: Augie Austin MD - Patient Status Disposition: Transfer SNF Condition: Good - Discharge Instructions Follow Up With: Leela Chatman MD [Primary Care Provider] - Additional Instructions: Discharge Instructions: Total Shoulder Please call [facility] ([phone]), your Primary Care Physician, or report to the Emergency Room if you have any of the following symptoms: Nausea, vomiting, fever greater that 101.5, swelling, chest pain, shortness of breath, increased pain/redness/drainage/odor for your incision site, numbness/tingling, or any other concerning symptoms. ACTIVITY: Always keep your arm in the sling. Do not raise your arm away from your body. Do not use your arm to help with getting in or out of bed. No weight bearing permitted. Only perform those exercises given to you by your therapist. Incentive Spirometer 10 times an hour. MEDICATIONS: Upon discharge resume your home medications. Take all the medications as prescribed. Take a stool softener if taking narcotic pain medications. Stool softeners are only effective if you drink enough fluids. Drink 6-8 glass of water or fluids a day, unless this is not allowed for another health problem. Despite using stool softeners, if you haven't had a bowel movement in 3 days, please switch to a gentle laxative. Gentle laxatives are sold over the counter. You should have a bowel movement within 24 hours, if not call the office. You will be discharged from the hospital with a prescription for pain medication. You are encouraged to decrease the use of narcotic pain medication as tolerated. Should you require a refill, please call the office. [facility] prescribes narcotic pain medication for only 4-6 weeks after surgery. If you require pain medication beyond this time period, you may be referred to your Primary Care Physician or to the Pain Clinic for further evaluation. Plan ahead for refills on pain medication as many narcotics either need to be picked up at the office or mailed. It is best to call 48-72 hours in advance of needing a prescription refill so you don't run out of medication. To help control the post-operative pain, you may take NSAIDs (Aleve,Advil, Motrin, Ibuprofen, Naprosyn) or Tylenol as prescribed on the bottle in addition to the pain medication. WOUND CARE: Leave the dressing on for 7-10 days. You may change the dressing if it becomes saturated greater than 50%. Do not get the dressing wet at anytime. Wash your hands with antibacterial soap, rinse and dry prior to any wound care. If you have eliceo the visiting nurse or rehab facility can remove the stapes 10-14 days after surgery and place steri-strips across the wound. Leave the steri-strips in place until they fall off on their own. You may let water from the shower run on top of the steri-strips. If you do not have a visiting nurse or rehab facility, you will need to return to the office at 10-14 days for the eliceo to be removed. If you have itching or redness around the dressing call the office. FOLLOW-UP: Please follow up with your surgeon in the orthopedic clinic, as scheduled <Marva Robertson E - Last Filed: 02/07/19 16:58> Orders not resulted at time of discharge: Pending orders 02/03/19 07:57 US anesthesia pain block [US] Routine 02/07/19 04:00 Hemoglobin and Hematocrit [HEME] AM 0400 Hemoglobin and Hematocrit [HEME] AM 0400 Date of Encounter: 02/06/19 Time of Encounter: 16:15 - Discharge Diagnosis (1) Status post reverse total arthroplasty of right shoulder Priority: Primary Status: Acute (2) Rotator cuff arthropathy of right shoulder Priority: Primary Status: Chronic (3) IVON on CPAP Priority: Secondary Status: Chronic (4) Obesity, morbid, BMI 40.0-49.9 Priority: Secondary Status: Chronic (5) Diabetes Priority: Secondary Status: Chronic Qualifiers: Diabetes mellitus type: type 2 Diabetes mellitus fpc insulin use: with 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 Palomino is a 78 year old female POD#3 s/p right TSR reverse 02/03/19 Patient seen at bedside, without complaints. A&O x 3 Afebrile, vital signs stable. dressings c/d/i with no visible drainage or erythema. full motion of hand, NV intact distally. Labs reviewed. patient continues hyperkalemic though patient did receive her PO K+ supplement last night. Will have patient hold this and recheck labwork for resolution. Patient is not symptomatic of hyperkalemia at this time. Vitals have remained at baseline. Pain control: adequate Participating in therapy. She is very unsteady and weak and therefore has been recommended for SNF/ECF for rehabilitation All questions and concerns addressed. Educated on use of incentive spirometer. Encouraged ambulation and proper hydration. Patient educated on post-operative restrictions and post-operative care. Patient being discharged to [facility] today with outpatient orthopedic follow up arranged. - Time Spent with Patient Total time spent providing and/or coordinating discharge services: Date of admission: 02/03/19 11:16 Primary care physician: Leela Chatman MD Consults: 02/03/19 11:16 Consult to Occupational Therapy [CONS] Routine Comment: post shoulder surgery Reason for Consult: post shoulder surgery Does patient have active BEDREST order?: No Is patient medically & hemodynamically stable?: Yes Consult to Physical Therapy [CONS] Routine Comment: post shoulder surgery Reason for Consult: post shoulder surgery Does patient have active BEDREST order?: No Is patient medically & hemodynamically stable?: Yes Consult to Applications Trainer [CONS] Routine Reason for SW Consult: shoulder surgery RT Post Op Consult [CONS] Routine Discharging clinician: Curtis Conner Anticipated date of discharge: 02/06/19 - VTE Documentation of Mechanical Device: Venous foot pump, device Labs on day of discharge: Labs from last 24 hours 02/06/19 02/06/19 02/06/19 07:03 05:11 04:15 Hgb 11.6 Hct 36.1 Sodium 134 L Potassium 5.3 H Chloride 104 Carbon Dioxide 24 BUN 22 Creatinine 0.83 Est GFR ( Amer) > 60 Est GFR (Non-Af Amer) > 60 BUN/Creatinine Ratio 27 H Glucose 154 H POC Glucose 154 H Calculated Osmolality 284 Calcium 9.0 02/05/19 02/05/19 02/05/19 20:13 16:22 16:03 Hgb Hct Sodium 135 L Potassium 4.7 Chloride 105 Carbon Dioxide 23 BUN 24 H Creatinine 0.94 Est GFR ( Amer) > 60 Est GFR (Non-Af Amer) 58 L BUN/Creatinine Ratio 26 Glucose 142 H POC Glucose 172 H 134 H Calculated Osmolality 286 Calcium 8.7 02/05/19 02/05/19 02/04/19 11:17 07:37 21:06 Hgb Hct Sodium Potassium Chloride Carbon Dioxide BUN Creatinine Est GFR ( Amer) Est GFR (Non-Af Amer) BUN/Creatinine Ratio Glucose POC Glucose 138 H 149 H 132 H Calculated Osmolality Calcium 02/04/19 02/04/19 16:57 12:08 Hgb Hct Sodium Potassium Chloride Carbon Dioxide BUN Creatinine Est GFR ( Amer) Est GFR (Non-Af Amer) BUN/Creatinine Ratio Glucose POC Glucose 183 H 189 H Calculated Osmolality Calcium - Impressions ITS Impressions Shoulder X-Ray 02/03/19 01:00 IMPRESSION: Anatomic alignment status post reverse type right shoulder arthroplasty. No evidence of hardware complication. D/ / Augie Austin MD / Augie Austin MD Interpreting Provider: Augie Austin MD - Patient Status Functional capacity at discharge: uses cane/walker (hemiwalker) Overall status at discharge: patient is progressing back to baseline - Diet and Activity Activity: as per physical therapy Diet: advance to your usual diet
--- NOTE | 2019-02-03 20:56 | Physician Discharge Referral ---
Home Health/Hosp Referral Info Transfer to: Home Health Attending Provider: Dr. Conner - Diagnosis (1) Status post reverse total arthroplasty of right shoulder Priority: Primary Status: Acute (2) Rotator cuff arthropathy of right shoulder Priority: Primary Status: Chronic (3) IVON on CPAP Priority: Secondary Status: Chronic (4) Obesity, morbid, BMI 40.0-49.9 Priority: Secondary Status: Chronic (5) HTN (hypertension) Priority: Secondary Status: Chronic (6) Type 2 diabetes mellitus Priority: Secondary Status: Chronic - Respiratory Orders Smoking Cessation: Smoking cessation has been advised. For more information, call the [place] Tobacco Quit Line at 6-659-ZPHE-NOW. - Diet/Nutrition Diet/Nutrition Orders: Regular - Activity Activity Orders: Up ad thi, Ambulate, Chair - Services Needed Following services are medically necessary services: Nursing, Home Health Aide, Physical Therapy, Occupational Therapy Home Care Orders: Opsite dressing, leave intact until first post-operative visit. Zipline/[place] in place, plan to remove at post-operative day #14-16. If dressing becomes >50% saturated, contact office, remove dressing and place appropriate dressing in its place. Do not allow for dressing to get wet. Shoulder Precautions x 6 weeks. Apply cold therapy wrap 3-6x/day for 20 minutes at a time. Encourage ambulation throughout the day. Use Incentive spirometer 10x/hour. Elevate affected extremity above heart as tolerated. NWB to affected upper extremity x 6 weeks. Will remove brace at first post-operative appointment. OK to remove during PT/OT and Home exercises. - Transfer Medications Prescriptions: Docusate Sodium [Colace] 100 mg PO BID 5 Days #10 capsule OxyCODONE Immed Rel [Roxicodone 5 MG] 5 mg PO Q6HR PRN 5 Days #20 tablet PRN Reason: Severe Pain Home Medications: Metformin HCl [Glucophage] 1,000 mg PO BID 04/20/18 [History] Pravastatin Sodium [Pravachol] 20 mg PO HS 04/20/18 [History] Sertraline [Zoloft] 50 mg PO DAILY 04/20/18 [History] Amlodipine Besylate 10 mg PO QAM 02/03/19 [History] Aspirin 325 mg PO DAILY 02/03/19 [History] Cholecalciferol (Vitamin D3) [Dialyvite Vitamin D] 5,000 units PO DAILY 02/03/19 [History] Docusate Sodium [Colace] 100 mg PO BID 5 Days #10 capsule 02/03/19 [Rx] Magnesium 250 mg PO QPM 02/03/19 [History] OxyCODONE Immed Rel [Roxicodone 5 MG] 5 mg PO Q6HR PRN 5 Days #20 tablet 02/03/19 [Rx] Potassium Chloride [Klor-Con 10] 10 meq PO QPM 02/03/19 [History] Spironolactone 25 mg PO QAM 02/03/19 [History] Tizanidine HCl 4 mg PO TID PRN 02/03/19 [History] Allergies/Adverse Reactions: Allergy/AdvReac Type Severity Reaction Status Date / Time Penicillins Allergy See Verified 02/03/19 08:08 Comments Certification: Further, I certify that my clinical findings support that this patient is homebound (i.e. absences from home require considerable and taxing effort and are for medical reasons or evangelical services or infrequently or short duration when for other reasons) because: Homebound Reason: Post-surgery restriction and or conditions limit ability to leave home Attestation: My signature below is to certify that this patient is under my care and that I, or nurse practitioner, or a physician furniture removalist's assistant working with me, has a [id number] encounter with this patient.
[2019-02-03] MEDS: Clindamycin 900 MG/50 ML 900 MG/50 ML IV.SOLN IVPB SCH (23:29)
[2019-02-04] MEDS: *HR* Enoxaparin 30 MG/0.3 ML SYRINGE SQ SCH ×2 (05:30→17:17)
--- NOTE | 2019-02-04 06:36 | Orthopedics Progress Note ---
Date of Encounter: 02/04/19 Time of Encounter: 06:36 Subjective Interval history: Patient was seen this morning doing well without complaints. Afebrile vital signs stable. Operative extremity: Neurovascularly intact Dressing clean dry and intact Calves nontender Assessment and plan: Continue with postoperative care Plan for discharge today Objective Vital signs: Vital Signs Temp Pulse Resp BP Pulse Ox 02/04/19 05:27 136/70 02/04/19 04:03 97.8 F 72 15 177/88 93 02/03/19 23:13 98.2 F 74 15 155/83 90 02/03/19 20:38 93 02/03/19 19:30 98.2 F 82 15 129/75 91 02/03/19 14:26 97.5 F L 85 15 140/80 94 02/03/19 13:25 97.9 F 85 16 128/82 95 02/03/19 12:28 98.0 F 89 16 130/70 94 02/03/19 11:54 98.1 F 82 15 130/77 98 02/03/19 11:18 97.5 F L 16 16 124/81 99 02/03/19 10:59 98.2 F 83 20 130/72 100 02/03/19 10:49 87 20 139/86 98 02/03/19 10:39 89 22 128/67 100 02/03/19 10:29 98.2 F 83 20 166/81 97 02/03/19 09:39 98.0 F 80 18 177/95 95 02/03/19 09:23 80 177/95 95 02/03/19 09:05 85 160/85 96 02/03/19 08:03 98.0 F 88 18 136/51 96 Intake and Output 02/03/19 02/03/19 02/04/19 15:59 23:59 07:59 Intake Total 720 / 960 240 / 960 50 / 50 Output Total 50 / 50 Balance 670 / 910 240 / 910 50 / 50 Intake: IV Fluids 50 / 50 Cleocin Premix 900 MG/50 ML 900 50 / 50 mg In 50 ml @ 50 mls/hr IVPB Q8HR FAITH Rx#:[id number] Oral 720 / 960 240 / 960 Output: Urine 0 / 0 Estimated Blood Loss 50 / 50 Other: Meal Dinner Percent of Meal Consumed 75% # Urine Diapers 1 Weight 112.037 kg 112.1 kg Blood Glucose* 230 219 Patient Weight 02/04/19 23:59 Weight 112.1 kg - Labs Labs: Abnormal lab results POC Glucose 230 mg/dL (70-99) H 02/03/19 11:49 Consult Discharge Plan - Plan Referrals: Leela Chatman MD [Primary Care Provider] - Prescriptions: Docusate Sodium [Colace] 100 mg PO BID 5 Days #10 capsule OxyCODONE Immed Rel [Roxicodone 5 MG] 5 mg PO Q6HR PRN 5 Days #20 tablet PRN Reason: Severe Pain
[2019-02-04 06:50] LABS: BUN/Creatinine Ratio 31 (6-26); Blood Urea Nitrogen 27 mg/dL (8-23); Calcium 9.1 mg/dL (8.6-10.3); Carbon Dioxide 21 mEq/L (23-29); Chloride 103 mEq/L (98-107); Glucose 172 mg/dL (70-105); Osmolality,Calculated 285 (280-300); Potassium 5.3 mEq/L (3.5-5.1); Sodium 133 mEq/L (136-145); eGFR For Non-African Americans > 60 (> 60)
[2019-02-04 06:56] LABS: Hematocrit 36.6 % (35.3-44.9); Hemoglobin 11.8 g/dL (11.5-15.4)
[2019-02-04] MEDS: *HR* OxyCODONE Immed Rel 5 MG TABLET PO PRN ×2 (07:51→13:28)
[2019-02-04] MEDS: amLODIPine 5 MG TABLET PO SCH (07:51)
[2019-02-04] MEDS: *HR* Metformin 500 MG TABLET PO SCH ×2 (07:52→17:18)
[2019-02-04] MEDS: Aspirin 325 MG TABLET PO SCH (07:52)
[2019-02-04] MEDS: Cholecalciferol (D-3) 1,000 UNIT TABLET PO SCH (07:52)
[2019-02-04] MEDS: Spironolactone 25 MG TABLET PO SCH (07:52)
[2019-02-04] MEDS: Clindamycin 900 MG/50 ML 900 MG/50 ML IV.SOLN IVPB SCH (07:52)
[2019-02-04] MEDS: Insulin LISPRO 300 UNITS/3 ML VIAL SQ SCH ×3 (07:53→17:18)
[2019-02-04] MEDS: Magnesium Oxide 400 MG TABLET PO SCH (17:18)
--- NOTE | 2019-02-04 17:30 | Event Note ---
Date of Encounter: 02/04/19 Time of Encounter: 11:50 PCR - POD#1 s/p right TSR reverse 02/03/19 Patient seen at bedside, without complaints. A&O x 3 Afebrile, vital signs stable. dressings c/d/i with no visible drainage or erythema. full motion of hand, NV intact distally. Labs reviewed. H/H - 11.8/36.6 stable, asymptomatic K+ 5.3 - asymptomatic, will monitor Pain control: adequate Participating in PT. She is very unsteady and weak. therapist recommended ECF placement for further rehab upon DC All questions and concerns addressed. Educated on use of incentive spirometer. Encouraged ambulation and proper hydration. Patient educated on post-operative restrictions and post-operative care. Assessment and plan: Continue with postoperative care Discharge plan: ECF, pending auth
--- NOTE | 2019-02-04 17:31 | Physician Discharge Referral ---
<Marva Carlton - Last Filed: 02/04/19 17:30> ExtendedCare Referral Info Transfer To: [facility] Provider in Charge: Dr. Conner - Diagnosis (1) Status post reverse total arthroplasty of right shoulder Priority: Primary Status: Acute (2) Rotator cuff arthropathy of right shoulder Priority: Primary Status: Chronic (3) IVON on CPAP Priority: Secondary Status: Chronic (4) Obesity, morbid, BMI 40.0-49.9 Priority: Secondary Status: Chronic (5) HTN (hypertension) Priority: Secondary Status: Chronic (6) Type 2 diabetes mellitus Priority: Secondary Status: Chronic Expected Duration of Placement: <30 days Prognosis: Good Aware of Diagnosis: Patient Aware of Prognosis: Patient - Transfer Medications Prescriptions: Docusate Sodium [Colace] 100 mg PO BID 5 Days #10 capsule OxyCODONE Immed Rel [Roxicodone 5 MG] 5 mg PO Q6HR PRN 5 Days #20 tablet PRN Reason: Severe Pain Home Medications: Metformin HCl [Glucophage] 1,000 mg PO BID 04/20/18 [History] Pravastatin Sodium [Pravachol] 20 mg PO HS 04/20/18 [History] Sertraline [Zoloft] 50 mg PO DAILY 04/20/18 [History] Amlodipine Besylate 10 mg PO QAM 02/03/19 [History] Aspirin 325 mg PO DAILY 02/03/19 [History] Cholecalciferol (Vitamin D3) [Dialyvite Vitamin D] 5,000 units PO DAILY 02/03/19 [History] Docusate Sodium [Colace] 100 mg PO BID 5 Days #10 capsule 02/03/19 [Rx] Magnesium 250 mg PO QPM 02/03/19 [History] OxyCODONE Immed Rel [Roxicodone 5 MG] 5 mg PO Q6HR PRN 5 Days #20 tablet 02/03/19 [Rx] Spironolactone 25 mg PO QAM 02/03/19 [History] Tizanidine HCl 4 mg PO TID PRN 02/03/19 [History] Allergies/Adverse Reactions: Allergy/AdvReac Type Severity Reaction Status Date / Time Penicillins Allergy See Verified 02/03/19 08:08 Comments - Respiratory Orders None Smoking Cessation: Smoking cessation has been advised. For more information, call the [place] Tobacco Quit Line at 1-002-XFGT-NOW. - Ancillary Orders May use pressure relief devices daily prn, May go on ANGEL w/family/respon democrat w/meds at nurse discretion PRN, May consult with Dentist, Stripping Shovel Operator, Sales Support Assistant PRN - Advance Directives Code Status: Full Code - Mobility Orders Chair, Ambulate - Rehabiliation Orders Rehab Potential: Good Rehab Orders: ROM Exercises, Evaluation for Physical Therapy, Evaluation for Occupational Therapy Other: SHOULDER continuity: Opsite dressing, leave intact until first post-operative visit. Zipline/[place] in place, plan to remove at post-operative day #14-16. If dressing becomes >50% saturated, contact office, remove dressing and place appropriate dressing in its place. Do not allow for dressing to get wet. Shoulder Precautions x 6 weeks. Apply cold therapy wrap 3-6x/day for 20 minutes at a time. Encourage ambulation throughout the day. Use Incentive spirometer 10x/hour. Elevate affected extremity above heart as tolerated. NWB to affected upper extremity x 6 weeks. Will remove brace at first post-operative appointment. OK to remove during PT/OT and Home exercises. - Treatments Skin tear care topically daily PRN per policy - Diet Orders Regular CERTIFICATION: I certify that the transfer of the above named patient to an Extended Care Facility is necessary for the continuing treatment of the diagnosis listed. The above information is true and accurate reflection of patient's current condition. Confidential - Redisclosure prohibited without a patient's written consent. <Marva Robertson - Last Filed: 02/06/19 12:48> - Diagnosis (1) Status post reverse total arthroplasty of right shoulder Priority: Primary Status: Acute (2) Rotator cuff arthropathy of right shoulder Priority: Primary Status: Chronic (3) IVON on CPAP Priority: Secondary Status: Chronic (4) Obesity, morbid, BMI 40.0-49.9 Priority: Secondary Status: Chronic (5) Diabetes Priority: Secondary Status: Chronic (6) HLD (hyperlipidemia) Priority: Secondary Status: Chronic (7) HTN (hypertension) Priority: Secondary Status: Chronic Prognosis: Good Aware of Diagnosis: Patient Aware of Prognosis: Patient - Respiratory Orders Smoking Cessation: Smoking cessation has been advised. For more information, call the [place] Tobacco Quit Line at 0-744-ZMUI-NOW. - Lab Orders Lab Orders: Other (include drug levels w/frequency) (BMP Q3 DAYS X 2 TO MONITOR POTASSIUM; RESUME PO POTASSIUM SUPPLEMENT WHEN POTASSIUM RETURNS TO NORMAL LIMITS) - Ancillary Orders May use pressure relief devices daily prn, May go on ANGEL w/family/respon democrat w/meds at nurse discretion PRN, May consult with Dentist, Stripping Shovel Operator, Sales Support Assistant PRN - Advance Directives Code Status: Full Code - Mobility Orders Chair, Ambulate - Rehabiliation Orders Rehab Potential: Good Rehab Orders: ROM Exercises, Evaluation for Physical Therapy, Evaluation for O ccupational Therapy - Treatments Skin tear care topically daily PRN per policy - Diet Orders Regular CERTIFICATION: I certify that the transfer of the above named patient to an Extended Care Facility is necessary for the continuing treatment of the diagnosis listed. The above information is true and accurate reflection of patient's current condition. Confidential - Redisclosure prohibited without a patient's written consent.
[2019-02-05 03:14] LABS: Hematocrit 36.2 % (35.3-44.9); Hemoglobin 11.5 g/dL (11.5-15.4)
[2019-02-05 04:54] LABS: Calcium 9.2 mg/dL (8.6-10.3)
[2019-02-05] MEDS: *HR* OxyCODONE/APAP 5/325 TABLET PO PRN ×2 (05:13→11:08)
[2019-02-05] MEDS: Insulin LISPRO 300 UNITS/3 ML VIAL SQ SCH ×5 (05:13→21:10)
[2019-02-05] MEDS: *HR* Enoxaparin 30 MG/0.3 ML SYRINGE SQ SCH ×2 (05:14→18:09)
--- NOTE | 2019-02-05 06:22 | Orthopedics Progress Note ---
Date of Encounter: 02/05/19 Time of Encounter: 06:21 Subjective Interval history: Patient was seen this morning doing well without complaints. Afebrile vital signs stable. Operative extremity: Neurovascularly intact Dressing clean dry and intact Calves nontender Assessment and plan: Continue with postoperative care Plan for discharge when placement approved Objective Vital signs: Vital Signs Temp Pulse Resp BP Pulse Ox 02/05/19 04:54 98.7 F 81 18 143/74 93 02/04/19 23:57 98.3 F 83 18 142/80 93 02/04/19 18:35 98.0 F 83 18 149/75 93 02/04/19 17:02 98.1 F 78 16 158/100 96 02/04/19 12:13 98.3 F 82 16 179/92 98 02/04/19 07:42 97.7 F 84 16 165/84 96 Intake and Output 02/04/19 02/04/19 02/05/19 15:59 23:59 07:59 Intake Total 480 / 1230 700 / 1230 0 / 0 Output Total 0 / 0 Balance 480 / 1230 700 / 1230 0 / 0 Intake: Oral 480 / 1180 700 / 1180 0 / 0 Output: Urine 0 / 0 Other: Meal Breakfast Percent of Meal Consumed 100% # Urine Diapers 1 4 Weight 113.4 kg Blood Glucose* 183 132 Patient Weight 02/05/19 23:59 Weight 113.4 kg - Labs CBC & BMP: 02/05/19 02:15 02/05/19 02:12 Labs: Abnormal lab results Sodium 133 mEq/L (136-145) L 02/04/19 06:06 Potassium 5.3 mEq/L (3.5-5.1) H 02/04/19 06:06 Carbon Dioxide 21 mEq/L (23-29) L 02/04/19 06:06 BUN 29 mg/dL (8-23) H 02/05/19 02:12 Est GFR (Non-Af Amer) 49 (> 60) L 02/05/19 02:12 27 (6-26) H 02/05/19 02:12 Glucose 146 mg/dL (70-105) H 02/05/19 02:12 POC Glucose 167 mg/dL (70-99) H 02/04/19 07:40 Consult Discharge Plan - Plan Referrals: Leela Chatman MD [Primary Care Provider] - Prescriptions: Docusate Sodium [Colace] 100 mg PO BID 5 Days #10 capsule OxyCODONE Immed Rel [Roxicodone 5 MG] 5 mg PO Q6HR PRN 5 Days #20 tablet PRN Reason: Severe Pain
[2019-02-05] MEDS: Cholecalciferol (D-3) 1,000 UNIT TABLET PO SCH (08:55)
[2019-02-05] MEDS: Aspirin 325 MG TABLET PO SCH (08:55)
[2019-02-05] MEDS: Spironolactone 25 MG TABLET PO SCH (08:55)
[2019-02-05] MEDS: amLODIPine 5 MG TABLET PO SCH (08:55)
[2019-02-05] MEDS: *HR* Metformin 500 MG TABLET PO SCH ×2 (08:55→18:10)
--- NOTE | 2019-02-05 12:54 | Event Note ---
Date of Encounter: 02/05/19 Time of Encounter: 11:20 PCR - POD#2 s/p right TSR reverse 02/03/19 Patient seen at bedside, without complaints. A&O x 3 Afebrile, vital signs stable. dressings c/d/i with no visible drainage or erythema. full motion of hand, NV intact distally. Labs reviewed. H/H - 11.5/36.2 stable, asymptomatic K+ improved to 5.0 BMP did increase to 29, and Cr increased from 0.87 to 1.08 overnight, also GFR decreased to 48. Will give fluid bolus now then recheck labs later this afternoon. Pain control: adequate Participating in PT. She is very unsteady and weak. therapist recommended ECF placement for further rehab upon DC All questions and concerns addressed. Educated on use of incentive spirometer. Encouraged ambulation and proper hydration. Patient educated on post-operative restrictions and post-operative care. Assessment and plan: Continue with postoperative care Discharge plan: ECF, still pending auth
[2019-02-05] MEDS ORDERED: 0.9 % Sodium Chloride 500 ML IVC ONE (13:04)
[2019-02-05 17:21] LABS: BUN/Creatinine Ratio 26 (6-26); Blood Urea Nitrogen 24 mg/dL (8-23); Calcium 8.7 mg/dL (8.6-10.3); Carbon Dioxide 23 mEq/L (23-29); Chloride 105 mEq/L (98-107); Glucose 142 mg/dL (70-105); Osmolality,Calculated 286 (280-300); Potassium 4.7 mEq/L (3.5-5.1); Sodium 135 mEq/L (136-145); eGFR For Non-African Americans 58 (> 60)
[2019-02-05] MEDS: Magnesium Oxide 400 MG TABLET PO SCH (18:10)
[2019-02-05] MEDS: *HR* OxyCODONE Immed Rel 5 MG TABLET PO PRN (21:11)
[2019-02-06 05:06] LABS: BUN/Creatinine Ratio 27 (6-26); Blood Urea Nitrogen 22 mg/dL (8-23); Carbon Dioxide 24 mEq/L (23-29); Chloride 104 mEq/L (98-107); Glucose 154 mg/dL (70-105); Osmolality,Calculated 284 (280-300); Potassium 5.3 mEq/L (3.5-5.1); Sodium 134 mEq/L (136-145); eGFR For Non-African Americans > 60 (> 60)
[2019-02-06] MEDS: *HR* Enoxaparin 30 MG/0.3 ML SYRINGE SQ SCH (05:21)
[2019-02-06 05:25] LABS: Hematocrit 36.1 % (35.3-44.9); Hemoglobin 11.6 g/dL (11.5-15.4)
--- NOTE | 2019-02-06 06:24 | Orthopedics Progress Note ---
Date of Encounter: 02/06/19 Time of Encounter: 06:24 Subjective Interval history: Patient was seen this morning doing well without complaints. Afebrile vital signs stable. Operative extremity: Neurovascularly intact Dressing clean dry and intact Calves nontender Assessment and plan: Continue with postoperative care Plan for discharge when placement approved Objective Vital signs: Vital Signs Temp Pulse Resp BP Pulse Ox 02/05/19 22:57 98.2 F 85 15 154/69 91 02/05/19 19:20 99.3 F 92 17 148/80 96 02/05/19 15:25 98.8 F 92 17 119/67 93 02/05/19 10:16 98.1 F 85 17 148/74 93 02/05/19 07:19 98.6 F 82 17 136/73 94 Intake and Output 02/05/19 02/05/19 02/06/19 15:59 23:59 07:59 Intake Total 790 / 790 Balance 790 / 790 Intake: IV Fluids 550 / 550 0.9 % Sodium Chloride 500 ML @ 500 / 500 999 mls/hr IVC .Q31M ONE Rx#: [id number] Cleocin Premix 900 MG/50 ML 900 50 / 50 mg In 50 ml @ 50 mls/hr IVPB Q8HR FAITH Rx#:[id number] Oral 240 / 240 Other: Meal Lunch Percent of Meal Consumed 70% # Urine Diapers 2 1 2 Blood Glucose* 138 172 - Labs CBC & BMP: 02/06/19 05:11 02/06/19 04:15 Labs: Abnormal lab results Sodium 134 mEq/L (136-145) L 02/06/19 04:15 Potassium 5.3 mEq/L (3.5-5.1) H 02/06/19 04:15 Carbon Dioxide 21 mEq/L (23-29) L 02/04/19 06:06 BUN 24 mg/dL (8-23) H 02/05/19 16:22 Est GFR (Non-Af Amer) 58 (> 60) L 02/05/19 16:22 27 (6-26) H 02/06/19 04:15 Glucose 154 mg/dL (70-105) H 02/06/19 04:15 POC Glucose 149 mg/dL (70-99) H 02/05/19 07:37 Consult Discharge Plan - Plan Referrals: Leela Chatman MD [Primary Care Provider] - Prescriptions: Docusate Sodium [Colace] 100 mg PO BID 5 Days #10 capsule OxyCODONE Immed Rel [Roxicodone 5 MG] 5 mg PO Q6HR PRN 5 Days #20 tablet PRN Reason: Severe Pain
[2019-02-06] MEDS: Aspirin 325 MG TABLET PO SCH (08:10)
[2019-02-06] MEDS: Insulin LISPRO 300 UNITS/3 ML VIAL SQ SCH ×3 (08:10→16:21)
[2019-02-06] MEDS: amLODIPine 5 MG TABLET PO SCH (08:11)
[2019-02-06] MEDS: Spironolactone 25 MG TABLET PO SCH (08:11)
[2019-02-06] MEDS: *HR* Metformin 500 MG TABLET PO SCH (08:11)
[2019-02-06] MEDS: Cholecalciferol (D-3) 1,000 UNIT TABLET PO SCH (08:11)
[2019-02-06 16:18] VITALS: BP 152/82
== END 2019-02-06 17:48 | DRG 483 ==
LOC: SAMDAY 07:36 → 3NENU 11:16
PROVIDERS: ADMIT Orthopaedic Surgery; ATTEND Orthopaedic Surgery

== ENCOUNTER 2020-02-24 11:13 | Inpatient (IN) ==
[2020-02-24] MEDS ORDERED: predniSONE 20 MG TABLET PO ONE (12:26)
[2020-02-24 16:12] LABS: Hematocrit 41.3 % (35.3-44.9); Hemoglobin 12.8 g/dL (11.5-15.4); Mean Corpuscular Hemoglobin 27.8 pg (28.0-33.3); Mean Corpuscular Volume 89.8 fL (83.0-100.0); Platelet Count 266 K/mcL (140-400); Red Cell Distribution Width 14.8 % (11.5-14.5); White Blood Count 9.3 K/mcL (4.3-11.1)
[2020-02-24 16:31] LABS: BUN/Creatinine Ratio 25 (6-26); Blood Urea Nitrogen 23 mg/dL (8-23); Calcium 9.4 mg/dL (8.6-10.3); Carbon Dioxide 26 mEq/L (23-29); Chloride 104 mEq/L (98-107); Glucose 187 mg/dL (70-105); Osmolality,Calculated 293 (280-300); Potassium 5.3 mEq/L (3.5-5.1); Sodium 137 mEq/L (136-145); eGFR For African Americans > 60 (> 60); eGFR For Non-African Americans 59 (> 60)
[2020-02-24] MEDS ORDERED: Naloxone 0.4 MG/ML INJ IVP PRN (17:35)
[2020-02-24] MEDS ORDERED: Ondansetron ODT 4 MG TAB.RAPDIS SL PRN (17:35)
[2020-02-24] MEDS ORDERED: Dextrose Gel 15 GM/37.5 ML TUBE PO PRN ×2 (19:02)
[2020-02-24] MEDS ORDERED: *HR* Dextrose 50 % in Water (Vial) 50 ML VIAL IVP PRN (19:02)
[2020-02-24] MEDS ORDERED: D5% in Water 1,000 ML IVC PRN (19:02)
[2020-02-24] MEDS ORDERED: Insulin LISPRO 300 UNITS/3 ML VIAL SQ SCH (21:00)
[2020-02-24] MEDS: Gabapentin 300 MG CAPSULE PO SCH (22:09)
[2020-02-25 03:42] LABS: Calcium 9.4 mg/dL (8.6-10.3); Hematocrit 37.7 % (35.3-44.9); Hemoglobin 11.7 g/dL (11.5-15.4); Mean Corpuscular Hemoglobin 28.1 pg (28.0-33.3); Mean Corpuscular Volume 90.4 fL (83.0-100.0); Mean Platelet Volume 10.2 fL (9.4-12.4); Platelet Count 296 K/mcL (140-400); Potassium 5.2 mEq/L (3.5-5.1); Red Blood Count 4.17 M/mcL (3.82-4.97); Red Cell Distribution Width 14.6 % (11.5-14.5); White Blood Count 9.1 K/mcL (4.3-11.1)
[2020-02-25 03:57] LABS: Prothrombin Time 11.5 Seconds (9.4-12.1)
[2020-02-25 04:00] LABS: Activated Partial Thrombo Time 32.5 Seconds (26.0-36.0)
[2020-02-25] MEDS: Gabapentin 300 MG CAPSULE PO SCH ×3 (08:39→20:18)
[2020-02-25] MEDS: Insulin LISPRO 300 UNITS/3 ML VIAL SQ SCH ×3 (08:40→20:29)
[2020-02-25] MEDS ORDERED: amLODIPine 5 MG TABLET PO SCH (09:00)
[2020-02-25] MEDS ORDERED: Spironolactone 25 MG TABLET PO SCH (09:00)
[2020-02-25] MEDS ORDERED: Aspirin Enteric Coated 81 MG Tablet PO SCH (09:00)
[2020-02-25] MEDS ORDERED: Cholecalciferol (D-3) 1,000 UNIT (25MCG) TABLET PO SCH (09:00)
[2020-02-25] MEDS ORDERED: Furosemide 20 MG TABLET PO SCH (09:00)
[2020-02-25] MEDS ORDERED: Insulin LISPRO 300 UNITS/3 ML VIAL SQ SCH (14:30)
[2020-02-25] MEDS ORDERED: Ethanol\\Acetic Acid\\Na Ace\\Ben 1,000 ML IRRIG.SOLN IR ONE (16:47)
[2020-02-25] MEDS ORDERED: *HR* Propofol 200 MG/20 ML VIAL IVP ONE (17:00)
[2020-02-25] MEDS ORDERED: Lidocaine -MPF 2% 2 ML VIAL ONE (17:00)
[2020-02-25] MEDS ORDERED: *HR* FentaNYL (PF) 100 MCG/2 ML VIAL ONE ×2 (17:00→18:27)
[2020-02-25] MEDS ORDERED: Clindamycin 900 MG/50 ML 900 MG/50 ML IV.SOLN IVPB ONE ×2 (17:09→17:13)
[2020-02-25] MEDS ORDERED: *HR* Rocuronium Bromide 50 MG/5 ML VIAL ONE (17:16)
[2020-02-25] MEDS ORDERED: Lidocaine HCL 4 ML Topical Solution (Laryng-O-Jet Kit Sterile Pak) TP ONE (17:17)
[2020-02-25] MEDS ORDERED: Tranexamic Acid 1,000 MG/10 ML VIAL ONE (17:55)
[2020-02-25] MEDS ORDERED: Magnesium Oxide 400 MG TABLET PO SCH (18:00)
[2020-02-25] MEDS ORDERED: Vancomycin 1,000 MG VIAL ONE (18:07)
[2020-02-25] MEDS ORDERED: Ondansetron 4 MG/2 ML VIAL ONE (18:42)
[2020-02-25] MEDS ORDERED: Ondansetron 4 MG/2 ML VIAL IVP ONE (18:44)
[2020-02-25 19:33] LABS: Hematocrit 40.5 % (35.3-44.9); Hemoglobin 12.5 g/dL (11.5-15.4)
[2020-02-25] MEDS ORDERED: Ringers Solution, Lactated 1,000 ML IVC SCH (19:33)
[2020-02-25] MEDS ORDERED: Sennosides 8.6 MG TABLET PO PRN (19:33)
[2020-02-25] MEDS ORDERED: Dextrose Gel 15 GM/37.5 ML TUBE PO PRN ×4 (19:33)
[2020-02-25] MEDS ORDERED: Ondansetron 4 MG/2 ML VIAL IVP PRN (19:33)
[2020-02-25] MEDS ORDERED: Naloxone 0.4 MG/ML INJ IVP PRN ×2 (19:33)
[2020-02-25] MEDS ORDERED: MOM Conc 10 ML UD.LIQ PO PRN (19:33)
[2020-02-25] MEDS ORDERED: *HR* Promethazine 25 MG/ML VIAL IVP PRN (19:33)
[2020-02-25] MEDS ORDERED: Ondansetron ODT 4 MG TAB.RAPDIS SL PRN (19:33)
[2020-02-25] MEDS ORDERED: *HR* Dextrose 50 % in Water (Vial) 50 ML VIAL IVP PRN (19:33)
[2020-02-25] MEDS ORDERED: D5% in Water 1,000 ML IVC PRN (19:33)
[2020-02-25] MEDS: Ascorbic Acid 500 MG TABLET PO SCH (20:19)
[2020-02-25] MEDS: Insulin DETEMIR 100 UNIT/ML X5UNITS SQ SCH (20:32)
[2020-02-25] MEDS ORDERED: Insulin DETEMIR 100 UNIT/ML X5UNITS SQ SCH (21:00)
[2020-02-25] MEDS: Clindamycin 900 MG/50 ML 900 MG/50 ML IV.SOLN IVPB SCH (23:19)
[2020-02-26] MEDS ORDERED: Insulin LISPRO 300 UNITS/3 ML VIAL SQ SCH
[2020-02-26] MEDS: amLODIPine 5 MG TABLET PO SCH (07:35)
[2020-02-26] MEDS: Multivit/Ca/Min/Fe/FA 1 TAB TABLET PO SCH (07:35)
[2020-02-26] MEDS: Spironolactone 25 MG TABLET PO SCH (07:35)
[2020-02-26] MEDS: Cholecalciferol (D-3) 1,000 UNIT (25MCG) TABLET PO SCH (07:36)
[2020-02-26] MEDS: Gabapentin 300 MG CAPSULE PO SCH ×3 (07:36→22:20)
[2020-02-26] MEDS: Ascorbic Acid 500 MG TABLET PO SCH ×2 (07:38→15:44)
[2020-02-26] MEDS: Furosemide 20 MG TABLET PO SCH (07:38)
[2020-02-26] MEDS: Clindamycin 900 MG/50 ML 900 MG/50 ML IV.SOLN IVPB SCH (07:38)
[2020-02-26] MEDS: Insulin LISPRO 300 UNITS/3 ML VIAL SQ SCH ×4 (08:05→20:57)
[2020-02-26 08:24] LABS: Basophils # 0.1 K/mcL (0.0-0.2); Basophils % 0.6 %; Eosinophils % 0.3 %; Hematocrit 39.6 % (35.3-44.9); Immature Granulocytes % 0.8 % (0-4); Lymphocytes % 9.2 %; Mean Corpuscular HGB Conc 30.3 g/dL (31.6-35.5); Mean Corpuscular Volume 92.3 fL (83.0-100.0); Mean Platelet Volume 10.1 fL (9.4-12.4); Monocytes # 1.1 K/mcL (0.0-1.3); Monocytes % 10.2 %; Neutrophils # 8.4 K/mcL (1.6-8.9); Platelet Count 271 K/mcL (140-400); Red Blood Count 4.29 M/mcL (3.82-4.97); Red Cell Distribution Width 14.7 % (11.5-14.5); Segmented Neutrophils % 78.9 %; White Blood Count 10.6 K/mcL (4.3-11.1)
[2020-02-26 08:39] LABS: Calcium 8.7 mg/dL (8.6-10.3); Magnesium 1.7 mg/dL (1.6-2.6); Phosphorous 5.1 mg/dL (2.7-4.5)
[2020-02-26] MEDS: Aspirin Enteric Coated 81 MG Tablet PO SCH (15:50)
[2020-02-26] MEDS: Magnesium Oxide 400 MG TABLET PO SCH (16:41)
[2020-02-26] MEDS: Insulin DETEMIR 100 UNIT/ML X5UNITS SQ SCH (22:20)
[2020-02-27 04:29] LABS: Calcium 8.7 mg/dL (8.6-10.3); Magnesium 1.9 mg/dL (1.6-2.6); Phosphorous 3.5 mg/dL (2.7-4.5); Potassium 4.1 mEq/L (3.5-5.1)
[2020-02-27] MEDS: Nystatin POWDER 30 GM BOTTLE TP SCH ×4 (07:47→21:44)
[2020-02-27] MEDS: Gabapentin 300 MG CAPSULE PO SCH ×3 (08:40→21:43)
[2020-02-27] MEDS: Furosemide 20 MG TABLET PO SCH (08:40)
[2020-02-27] MEDS: Ascorbic Acid 500 MG TABLET PO SCH ×2 (08:40→17:10)
[2020-02-27] MEDS: Multivit/Ca/Min/Fe/FA 1 TAB TABLET PO SCH (08:40)
[2020-02-27] MEDS: Cholecalciferol (D-3) 1,000 UNIT (25MCG) TABLET PO SCH (08:41)
[2020-02-27] MEDS: Aspirin Enteric Coated 81 MG Tablet PO SCH (08:42)
[2020-02-27] MEDS: amLODIPine 5 MG TABLET PO SCH (08:42)
[2020-02-27] MEDS: Insulin LISPRO 300 UNITS/3 ML VIAL SQ SCH ×4 (08:43→21:39)
[2020-02-27] MEDS: Magnesium Oxide 400 MG TABLET PO SCH (17:10)
[2020-02-27] MEDS: Insulin DETEMIR 100 UNIT/ML X5UNITS SQ SCH (21:43)
[2020-02-28 02:23] LABS: Basophils % 0.3 %; Eosinophils # 0.4 K/mcL (0.0-0.6); Eosinophils % 3.8 %; Immature Granulocytes % 0.8 % (0-4); Lymphocytes # 1.1 K/mcL (0.6-4.6); Lymphocytes % 11.9 %; Mean Corpuscular HGB Conc 31.3 g/dL (31.6-35.5); Mean Corpuscular Hemoglobin 28.4 pg (28.0-33.3); Mean Corpuscular Volume 90.6 fL (83.0-100.0); Mean Platelet Volume 10.6 fL (9.4-12.4); Monocytes # 0.8 K/mcL (0.0-1.3); Monocytes % 8.2 %; Neutrophils # 7.2 K/mcL (1.6-8.9); Platelet Count 238 K/mcL (140-400); Red Blood Count 3.42 M/mcL (3.82-4.97); Red Cell Distribution Width 14.6 % (11.5-14.5); White Blood Count 9.6 K/mcL (4.3-11.1)
[2020-02-28 02:30] LABS: Hemoglobin 9.7 g/dL (11.5-15.4)
[2020-02-28 02:38] LABS: Calcium 8.5 mg/dL (8.6-10.3); Magnesium 1.9 mg/dL (1.6-2.6); Potassium 4.3 mEq/L (3.5-5.1)
[2020-02-28] MEDS: Aspirin Enteric Coated 81 MG Tablet PO SCH (09:00)
[2020-02-28] MEDS: Furosemide 20 MG TABLET PO SCH (09:00)
[2020-02-28] MEDS: Cholecalciferol (D-3) 1,000 UNIT (25MCG) TABLET PO SCH (09:02)
[2020-02-28] MEDS: Multivit/Ca/Min/Fe/FA 1 TAB TABLET PO SCH (09:02)
[2020-02-28] MEDS: Gabapentin 300 MG CAPSULE PO SCH ×3 (09:03→21:15)
[2020-02-28] MEDS: amLODIPine 5 MG TABLET PO SCH (09:03)
[2020-02-28] MEDS: Ascorbic Acid 500 MG TABLET PO SCH ×2 (09:03→16:42)
[2020-02-28] MEDS: Insulin LISPRO 300 UNITS/3 ML VIAL SQ SCH ×4 (09:04→21:13)
[2020-02-28] MEDS: Nystatin POWDER 30 GM BOTTLE TP SCH ×3 (09:19→21:33)
[2020-02-28] MEDS: Magnesium Oxide 400 MG TABLET PO SCH (16:42)
[2020-02-28] MEDS: Insulin DETEMIR 100 UNIT/ML X5UNITS SQ SCH (21:15)
[2020-02-29] MEDS: amLODIPine 5 MG TABLET PO SCH (08:58)
[2020-02-29] MEDS: Aspirin Enteric Coated 81 MG Tablet PO SCH (08:58)
[2020-02-29] MEDS: Gabapentin 300 MG CAPSULE PO SCH ×3 (08:59→21:58)
[2020-02-29] MEDS: Spironolactone 25 MG TABLET PO SCH (08:59)
[2020-02-29] MEDS: Ascorbic Acid 500 MG TABLET PO SCH ×2 (08:59→17:02)
[2020-02-29] MEDS: Multivit/Ca/Min/Fe/FA 1 TAB TABLET PO SCH (08:59)
[2020-02-29] MEDS: Furosemide 20 MG TABLET PO SCH (08:59)
[2020-02-29] MEDS: Nystatin POWDER 30 GM BOTTLE TP SCH ×3 (09:00→21:59)
[2020-02-29] MEDS: Insulin LISPRO 300 UNITS/3 ML VIAL SQ SCH ×4 (09:00→21:58)
[2020-02-29] MEDS: Cholecalciferol (D-3) 1,000 UNIT (25MCG) TABLET PO SCH (09:01)
[2020-02-29] MEDS: Magnesium Oxide 400 MG TABLET PO SCH (17:02)
[2020-02-29] MEDS: Insulin DETEMIR 100 UNIT/ML X5UNITS SQ SCH (21:58)
[2020-03-01 08:14] LABS: BUN/Creatinine Ratio 30 (6-26); Blood Urea Nitrogen 29 mg/dL (8-23); Carbon Dioxide 30 mEq/L (23-29); Chloride 102 mEq/L (98-107); Glucose 187 mg/dL (70-105); Magnesium 1.9 mg/dL (1.6-2.6); Osmolality,Calculated 297 (280-300); Potassium 4.3 mEq/L (3.5-5.1); Sodium 138 mEq/L (136-145); eGFR For African Americans > 60 (> 60); eGFR For Non-African Americans 56 (> 60)
[2020-03-01] MEDS: Insulin LISPRO 300 UNITS/3 ML VIAL SQ SCH ×4 (08:50→20:33)
[2020-03-01] MEDS: Aspirin Enteric Coated 81 MG Tablet PO SCH (08:51)
[2020-03-01] MEDS: Multivit/Ca/Min/Fe/FA 1 TAB TABLET PO SCH (08:51)
[2020-03-01] MEDS: Spironolactone 25 MG TABLET PO SCH (08:51)
[2020-03-01] MEDS: Gabapentin 300 MG CAPSULE PO SCH ×3 (08:51→20:33)
[2020-03-01] MEDS: Furosemide 20 MG TABLET PO SCH (08:52)
[2020-03-01] MEDS: amLODIPine 5 MG TABLET PO SCH (08:52)
[2020-03-01] MEDS: Nystatin POWDER 30 GM BOTTLE TP SCH ×3 (08:52→20:37)
[2020-03-01] MEDS: Cholecalciferol (D-3) 1,000 UNIT (25MCG) TABLET PO SCH (08:52)
[2020-03-01] MEDS: Ascorbic Acid 500 MG TABLET PO SCH ×2 (08:52→17:07)
[2020-03-01] MEDS: Magnesium Oxide 400 MG TABLET PO SCH (17:09)
[2020-03-01] MEDS: Insulin DETEMIR 100 UNIT/ML X5UNITS SQ SCH (20:37)
[2020-03-02] MEDS: Spironolactone 25 MG TABLET PO SCH (08:39)
[2020-03-02] MEDS: amLODIPine 5 MG TABLET PO SCH (08:39)
[2020-03-02] MEDS: Cholecalciferol (D-3) 1,000 UNIT (25MCG) TABLET PO SCH (08:39)
[2020-03-02] MEDS: Aspirin Enteric Coated 81 MG Tablet PO SCH (08:39)
[2020-03-02] MEDS: Furosemide 20 MG TABLET PO SCH (08:39)
[2020-03-02] MEDS: Ascorbic Acid 500 MG TABLET PO SCH (08:39)
[2020-03-02] MEDS: Multivit/Ca/Min/Fe/FA 1 TAB TABLET PO SCH (08:39)
[2020-03-02] MEDS: Gabapentin 300 MG CAPSULE PO SCH (08:39)
[2020-03-02] MEDS: Insulin LISPRO 300 UNITS/3 ML VIAL SQ SCH ×2 (08:40→11:56)
[2020-03-02] MEDS: Nystatin POWDER 30 GM BOTTLE TP SCH (08:40)
[2020-03-02 10:59] VITALS: BP 114/70
[2020-03-02] MEDS ORDERED: Insulin DETEMIR 100 UNIT/ML X5UNITS SQ SCH (21:00)
== END 2020-03-02 16:00 | DRG 470 ==
LOC: EMEROOARM 11:13 → 3NENU 11:13 → SUATTDRO 17:17 → 3NENU 18:25
PROVIDERS: ADMIT Family Medicine; ATTEND Internal Medicine

== ENCOUNTER 2020-05-01 11:22 | Inpatient (IN) ==
[2020-05-01 12:08] LABS: Basophils # 0.1 K/mcL (0.0-0.2); Basophils % 0.7 %; Eosinophils # 0.4 K/mcL (0.0-0.6); Eosinophils % 5.6 %; Hematocrit 39.5 % (35.3-44.9); Immature Granulocytes % 0.4 % (0-4); Lymphocytes # 1.5 K/mcL (0.6-4.6); Lymphocytes % 20.6 %; Mean Corpuscular HGB Conc 30.4 g/dL (31.6-35.5); Mean Corpuscular Hemoglobin 26.8 pg (28.0-33.3); Mean Corpuscular Volume 88.4 fL (83.0-100.0); Monocytes # 0.5 K/mcL (0.0-1.3); Monocytes % 7.6 %; Neutrophils # 4.7 K/mcL (1.6-8.9); Platelet Count 331 K/mcL (140-400); Red Blood Count 4.47 M/mcL (3.82-4.97); Red Cell Distribution Width 15.2 % (11.5-14.5); Segmented Neutrophils % 65.1 %; White Blood Count 7.1 K/mcL (4.3-11.1)
[2020-05-01 12:30] LABS: BUN/Creatinine Ratio 20 (6-26); Blood Urea Nitrogen 16 mg/dL (8-23); Calcium 9.6 mg/dL (8.6-10.3); Carbon Dioxide 29 mEq/L (23-29); Chloride 99 mEq/L (98-107); Glucose 188 mg/dL (70-105); Osmolality,Calculated 296 (280-300); Potassium 3.5 mEq/L (3.5-5.1); Sodium 140 mEq/L (136-145); Troponin I < 0.03 ng/mL (< 0.04); eGFR For African Americans > 60 (> 60); eGFR For Non-African Americans > 60 (> 60)
[2020-05-01] MEDS ORDERED: Furosemide 40 MG/4 ML VIAL IVP ONE (12:33)
[2020-05-01 13:04] LABS: Adenovirus Not Detected (Not Detect); Bordetella Pertussis Not Detected (Not Detect); Chlamydophila pneumoniae Not Detected (Not Detect); Coronavirus 229E Not Detected (Not Detect); Coronavirus HKU1 Not Detected (Not Detect); Coronavirus NL63 Not Detected (Not Detect); Coronavirus OC43 Not Detected (Not Detect); Human Metapneumovirus Not Detected (Not Detect); Human Rhinovirus/Enterovirus Not Detected (Not Detect); Influenza A Subtype 2009 H1 Not Detected (Not Detect); Influenza B Not Detected (Not Detect); Mycoplasma pneumoniae Not Detected (Not Detect); Parainfluenza Virus 1 Not Detected (Not Detect); Parainfluenza Virus 2 Not Detected (Not Detect); Parainfluenza Virus 3 Not Detected (Not Detect); Parainfluenza Virus 4 Not Detected (Not Detect); Respiratory Syncytial Virus Not Detected (Not Detect)
[2020-05-01] MEDS ORDERED: Naloxone 0.4 MG/ML INJ IVP PRN (13:06)
[2020-05-01] MEDS ORDERED: Ondansetron 4 MG/2 ML VIAL IVP PRN (13:06)
[2020-05-01] MEDS ORDERED: Perflutren Lipid Microsphere 1.3 ML in 0.9 % Sodium Chloride 8.7 ML IVP PRN (13:07)
[2020-05-01] MEDS ORDERED: Dextrose Gel 15 GM/37.5 ML TUBE PO PRN ×2 (13:10)
[2020-05-01] MEDS ORDERED: *HR* Dextrose 50 % in Water (Vial) 50 ML VIAL IVP PRN (13:10)
[2020-05-01] MEDS ORDERED: D5% in Water 1,000 ML IVC PRN (13:10)
[2020-05-01 13:28] LABS: Bacteria,Urine Few per hpf (None-Few); Bilirubin,Urine Negative (Negative); Blood,Urine Negative (Negative); Clarity,Urine Clear (Clear); Color,Urine Colorless (Yellow); Glucose,Urine (UA) Normal (Normal); Ketones,Urine Negative (Negative); Leukocyte Esterase,Urine Large (Negative); Mucus,Urine Few per lpf (None-Few); Nitrite,Urine Negative (Negative); PH,Urine 6.5 pH Units (5.0-8.0); Protein,Urine Negative (Neg-Trace); RBC,Urine 0-3 per hpf (0-3); Specific Gravity,Urine 1.006 (1.010-1.025); Squamous Epithelial Cell,Urine Few per hpf (None-Few); Urobilinogen,Urine Normal (Normal); WBC,Urine 50-100 per hpf (0-3)
[2020-05-01] MEDS: *HR* Heparin 5,000 UNIT/ML VIAL SQ SCH ×2 (14:50→22:08)
[2020-05-01] MEDS: Gabapentin 300 MG CAPSULE PO SCH ×2 (15:33→20:28)
[2020-05-01] MEDS: Insulin LISPRO 300 UNITS/3 ML VIAL SQ SCH ×2 (17:11→20:26)
[2020-05-01] MEDS: Furosemide 40 MG/4 ML VIAL IVP SCH (20:28)
[2020-05-01] MEDS ORDERED: Acetaminophen 325 MG TABLET PO ONE (22:54)
[2020-05-02 01:51] LABS: Basophils # 0.1 K/mcL (0.0-0.2); Basophils % 0.7 %; Eosinophils # 0.5 K/mcL (0.0-0.6); Eosinophils % 6.6 %; Hematocrit 35.3 % (35.3-44.9); Hemoglobin 10.9 g/dL (11.5-15.4); Immature Granulocytes % 0.2 % (0-4); Lymphocytes # 1.6 K/mcL (0.6-4.6); Lymphocytes % 20.1 %; Mean Corpuscular HGB Conc 30.9 g/dL (31.6-35.5); Mean Corpuscular Hemoglobin 27.7 pg (28.0-33.3); Mean Corpuscular Volume 89.8 fL (83.0-100.0); Mean Platelet Volume 9.7 fL (9.4-12.4); Monocytes # 0.6 K/mcL (0.0-1.3); Monocytes % 7.7 %; Neutrophils # 5.2 K/mcL (1.6-8.9); Platelet Count 290 K/mcL (140-400); Red Blood Count 3.93 M/mcL (3.82-4.97); Red Cell Distribution Width 15.2 % (11.5-14.5); Segmented Neutrophils % 64.7 %; White Blood Count 8.1 K/mcL (4.3-11.1)
[2020-05-02 02:13] LABS: BUN/Creatinine Ratio 19 (6-26); Blood Urea Nitrogen 17 mg/dL (8-23); Calcium 8.9 mg/dL (8.6-10.3); Carbon Dioxide 32 mEq/L (23-29); Chloride 98 mEq/L (98-107); Glucose 155 mg/dL (70-105); Osmolality,Calculated 295 (280-300); Potassium 3.4 mEq/L (3.5-5.1); Sodium 140 mEq/L (136-145); eGFR For African Americans > 60 (> 60); eGFR For Non-African Americans > 60 (> 60)
[2020-05-02] MEDS: *HR* Heparin 5,000 UNIT/ML VIAL SQ SCH ×3 (05:19→20:47)
[2020-05-02] MEDS: amLODIPine 5 MG TABLET PO SCH (09:35)
[2020-05-02] MEDS: Gabapentin 300 MG CAPSULE PO SCH ×3 (09:35→20:47)
[2020-05-02] MEDS: Aspirin Enteric Coated 81 MG Tablet PO SCH (09:35)
[2020-05-02] MEDS: Insulin LISPRO 300 UNITS/3 ML VIAL SQ SCH ×4 (09:36→20:41)
[2020-05-02] MEDS: Furosemide 40 MG/4 ML VIAL IVP SCH ×2 (09:36→20:47)
[2020-05-02] MEDS: Spironolactone 25 MG TABLET PO SCH (09:36)
[2020-05-02 18:23] LABS: Potassium 4.4 mEq/L (3.5-5.1)
[2020-05-03] MEDS: *HR* Heparin 5,000 UNIT/ML VIAL SQ SCH ×3 (05:28→19:36)
[2020-05-03 06:23] LABS: Prothrombin Time 11.7 Seconds (9.4-12.1)
[2020-05-03 06:40] LABS: Albumin 3.8 g/dL (3.5-5.7); Albumin/Globulin Ratio 1.5 (1.1-2.2); Bilirubin,Indirect 0.3 mg/dL (0.0-1.0); Bilirubin,Total 0.3 mg/dL (0.3-1.0); Globulin 2.6 g/dL (2.4-3.5); Total Protein 6.4 g/dL (6.4-8.9)
[2020-05-03 06:41] LABS: BUN/Creatinine Ratio 20 (6-26); Blood Urea Nitrogen 18 mg/dL (8-23); Calcium 9.2 mg/dL (8.6-10.3); Carbon Dioxide 35 mEq/L (23-29); Chloride 98 mEq/L (98-107); Glucose 185 mg/dL (70-105); Magnesium 1.7 mg/dL (1.6-2.6); Osmolality,Calculated 297 (280-300); Potassium 3.6 mEq/L (3.5-5.1); Sodium 140 mEq/L (136-145); eGFR For African Americans > 60 (> 60); eGFR For Non-African Americans > 60 (> 60)
[2020-05-03] MEDS: Furosemide 40 MG/4 ML VIAL IVP SCH ×3 (07:47→17:24)
[2020-05-03] MEDS: amLODIPine 5 MG TABLET PO SCH (07:47)
[2020-05-03] MEDS: Insulin LISPRO 300 UNITS/3 ML VIAL SQ SCH ×4 (07:47→20:41)
[2020-05-03] MEDS: Aspirin Enteric Coated 81 MG Tablet PO SCH (07:47)
[2020-05-03] MEDS: Spironolactone 25 MG TABLET PO SCH (07:47)
[2020-05-03] MEDS: Gabapentin 300 MG CAPSULE PO SCH ×3 (07:58→19:36)
[2020-05-04 02:03] LABS: BUN/Creatinine Ratio 23 (6-26); Blood Urea Nitrogen 21 mg/dL (8-23); Calcium 9.2 mg/dL (8.6-10.3); Carbon Dioxide 34 mEq/L (23-29); Chloride 97 mEq/L (98-107); Glucose 171 mg/dL (70-105); Magnesium 1.7 mg/dL (1.6-2.6); Osmolality,Calculated 295 (280-300); Potassium 4.1 mEq/L (3.5-5.1); Sodium 139 mEq/L (136-145); eGFR For African Americans > 60 (> 60); eGFR For Non-African Americans 59 (> 60)
[2020-05-04] MEDS: *HR* Heparin 5,000 UNIT/ML VIAL SQ SCH (05:29)
[2020-05-04] MEDS ORDERED: Furosemide 40 MG/4 ML VIAL IVP SCH (07:30)
[2020-05-04] MEDS ORDERED: Furosemide 60 MG in 0.9 % Sodium Chloride 50 ML IVPB ONE (08:00)
[2020-05-04] MEDS: Gabapentin 300 MG CAPSULE PO SCH (08:19)
[2020-05-04] MEDS: amLODIPine 5 MG TABLET PO SCH (08:19)
[2020-05-04] MEDS: Aspirin Enteric Coated 81 MG Tablet PO SCH (08:19)
[2020-05-04] MEDS: Insulin LISPRO 300 UNITS/3 ML VIAL SQ SCH ×2 (08:23→12:02)
[2020-05-04 11:55] VITALS: BP 114/69
== END 2020-05-04 14:41 | disposition home health service (06) | DRG 291 ==
LOC: 2ANU 11:22 → EMEROOARM 11:22 → SUATTDRO 13:24 → 2ANU 14:29
PROVIDERS: ADMIT Family Medicine; ATTEND Internal Medicine